=== PATIENT | female | born 1990 | race African-American/Black ===

== ENCOUNTER → 2016-10-08 | Outpatient (CLI) | payer OTHER ==
--- NOTE | 2016-10-08 17:06 | US ---
EXAMINATION TYPE: US OB <=14 wks transvag DATE OF EXAM: 10/08/2016 COMPARISON: NONE CLINICAL HISTORY: N91.2 AMENORRHEA. Early OB, no bleeding or cramping EXAM PERFORMED: OBTA and OBTV EXAM MEASUREMENTS: GESTATIONAL AGE / DATING Physician Established: Not established Dates by LMP: unknown Dates by First Scan: SOLE BUFFER Dates by Current Scan for: N/A MATERNAL ANATOMY Uterus: 11.6 x 7.9 x 6.4cm Right Ovary: 2.6 x 2.3 x 2.8cm Left Ovary: 4.0 x 2.7 x 2.6cm Post CDS / Adnexa: wnl Presence of free fluid: no Presence of corpus luteal cyst: not seen Presence of subchorionic bleed: no GESTATION / SURVEY Heterogeneous area seen midline fundus with mixed components. Vascularity noted. No discernable gesta tion sac seen. Date of LMP: unknown Beta HcG (if available): not available IMPRESSION: There is irregular fluid collection in the uterine fundus that could be an early gestational sac. No yolk sac is seen. This measures 1.6 cm in diameter. This could relate to a blighted ovum. No evidence of ectopic .
== END | disposition home or self-care (01) ==
LOC: RADUSWWP 16:15
PROVIDERS: ATTEND Obstetrics & Gynecology
DX: O02.0 Blighted ovum and nonhydatidiform mole (principal); N85.8 Other specified noninflammatory disorders of uterus; Z3A.14 14 weeks gestation of pregnancy
CPT/HCPCS: 76801; 76817

== ENCOUNTER 2016-10-19 09:16 | Observation (INO) | payer OTHER ==
--- NOTE | 2016-10-19 10:57 | ED ---
General Adult HPI - General Chief complaint: Vaginal Bleeding Stated complaint: Vaginal Bleeding Time Seen by Provider: 10/19/16 10:34 Source: patient, RN notes reviewed Mode of arrival: EMS Limitations: no limitations - History of Present Illness Initial comments: 25-year-old female presents to the emergency department with a chief complaint of vaginal bleeding. Patient was seen at a previous ER prior to being transferred here for this vaginal bleeding. A pelvic exam that showed an increased amount of bleeding. She was recently diagnosed with a miscarriage back in October 02. She states she's had minor bleeding since the miscarriage but then she started to have heavy bleeding the last 2 days. Patient states she goes through 2-3 pads an hour. Patient states she has had some lightheadedness but this time she does feel okay. Patient states that she is chronically suffer from anemia. 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 Patient states that she is a . Patient states that she hasn't had any fever chills with this. Patient denies any abdominal pain. Patient was concerned due to the bleeding and she was transferred here because they do not have any OB /RESIDENTIAL DOOR UNIT INSTALLER coverage for additional care. Patient denies any recent fever, chills, shortness of breath, chest pain, back pain, abdominal pain, nausea vomiting, numbness or tingling, dysuria or hematuria, constipation or diarrhea, headaches or visual changes, or any other current symptoms. - Related Data Home Medications Medication Instructions Recorded Confirmed Ferrous Sulfate [Feosol] 325 mg PO DAILY 10/19/16 10/19/16 Tjk-Qdha-Caogn Acid 1 cap PO DAILY 10/19/16 10/19/16 [-U Capsule (formulary)] Allergies Allergy/AdvReac Type Severity Reaction Status Date / Time No Known Allergies Allergy Verified 10/19/16 10:08 Review of Systems ROS Statement: Those systems with pertinent positive or pertinent negative responses have been documented in the HPI. ROS Other: All systems not noted in ROS Statement are negative. Past Medical History Additional Past Medical History / Comment(s): anemia History of Any Multi-Drug Resistant Organisms: None Reported Past Surgical History: No Surgical Hx Reported Past Psychological History: No Psychological Hx Reported Smoking Status: Never smoker Past Alcohol Use History: None Reported Past Drug Use History: None Reported General Exam - General Exam Comments Initial Comments: General: The patient is awake and alert, in no distress, and does not appear acutely ill. Eye: Pupils are equal, round and reactive to light, extra-ocular movements are intact; there is normal conjunctiva bilaterally. No signs of icterus. Ears, nose, mouth and throat: There are moist mucous membranes. Neck: The neck is supple, there is no tenderness. Cardiovascular: There is a regular rate and rhythm. No murmur, rub or gallop is appreciated. Respiratory: Lungs are clear to auscultation, respirations are non-labored, breath sounds are equal. No wheezes, stridor, rales, or rhonchi. Gastrointestinal: Soft, non-distended, non-tender abdomen without masses or organomegaly noted. There is no rebound or guarding present. No CVA tenderness. Bowel sounds are unremarkable. Back: There is no tenderness to palpation in the midline. There is no obvious deformity. No rashes noted. Musculoskeletal: Normal ROM, no tenderness, There is no pedal edema. There is no calf tenderness or swelling. Sensation intact. Pulses equal bilaterally 2+. Neurological: CN II-XII intact, There are no obvious motor or sensory deficits. Coordination appears grossly intact. Speech is normal. Skin: Skin is warm and dry and no rashes or lesions are noted. Psychiatric: Cooperative, appropriate mood & affect, normal judgment. Limitations: no limitations External exam: Present: normal external exam Speculum exam: Present: vaginal bleeding, other (clot in cervical os) Course Vital Signs 10/19/16 10/19/16 10/19/16 09:19 12:24 13:40 Temperature 97.8 F 98.3 F Pulse Rate 95 99 94 Respiratory 18 18 18 Rate Blood Pressure 122/54 114/68 122/66 O2 Sat by Pulse 100 100 100 Oximetry Medical Decision Making - Medical Decision Making 25-year-old female presents emergency department chief complaint of vaginal bleeding. At this time patient's previous laboratory is reviewed that do show a stable hemoglobin. We will do an ultrasound of the area we will repeat pelvic exam as well as an hCG level. This time patient's lab work and outpatient labs from previous hospital as well as ultrasound of fluids and reviewed. This time it does appear the patient has most likely retained products of conception. We will admit the patient. Case was discussed with Dr. Gil by and there hoped to do a D&C. Patient will be Nothing by mouth we'll continue hydration. - Lab Data Result diagrams: 10/19/16 11:00 Lab Results 10/19/16 10/19/16 10/19/16 Range/Units 11:00 11:00 12:23 WBC 8.0 (3.8-10.6) k/uL RBC 3.69 L (3.80-5.40) m/uL Hgb 9.1 L (11.4-16.0) gm/dL Hct 29.8 L (34.0-46.0) % MCV 80.9 (80.0-100.0) fL MCH 24.6 L (25.0-35.0) pg MCHC 30.4 L (31.0-37.0) g/dL RDW 15.0 (11.5-15.5) % Plt Count 305 (150-450) k/uL Neutrophils % 86 % Lymphocytes % 10 % Monocytes % 2 % Eosinophils % 2 % Basophils % 0 % Neutrophils # 6.8 (1.3-7.7) k/uL Lymphocytes # 0.8 L (1.0-4.8) k/uL Monocytes # 0.1 (0-1.0) k/uL Eosinophils # 0.2 (0-0.7) k/uL Basophils # 0.0 (0-0.2) k/uL Hypochromasia Slight HCG, Quant 2107.2 mIU/mL Blood Type A Positive Blood Type Confirm Blood Type Recheck CABO Indicated Antibody Screen NEGATIVE Spec Expiration Date 10/22/2016 - 229910/19/16 Range/Units 12:35 WBC (3.8-10.6) k/uL RBC (3.80-5.40) m/uL Hgb (11.4-16.0) gm/dL Hct (34.0-46.0) % MCV (80.0-100.0) fL MCH (25.0-35.0) pg MCHC (31.0-37.0) g/dL RDW (11.5-15.5) % Plt Count (150-450) k/uL Neutrophils % % Lymphocytes % % Monocytes % % Eosinophils % % Basophils % % Neutrophils # (1.3-7.7) k/uL Lymphocytes # (1.0-4.8) k/uL Monocytes # (0-1.0) k/uL Eosinophils # (0-0.7) k/uL Basophils # (0-0.2) k/uL Hypochromasia HCG, Quant mIU/mL Blood Type Blood Type Confirm A Positive Blood Type Recheck Antibody Screen Spec Expiration Date - Radiology Data Radiology results: report reviewed, image reviewed Disposition Clinical Impression: Retained products of conception Disposition: ADMITTED IP TO THIS [facility] Condition: Stable Referrals: Jordin Lester MD [Primary Care Provider] - 1-2 days Time of Disposition: 13:44 Decision Date: 10/19/16 Decision Time: 13:44
[2016-10-19 11:23] LABS: Basophils % (A) 0 %; CHCM 31.1; Eosinophils # (A) 0.2 k/uL (0-0.7); Eosinophils % (A) 2 %; HCT 29.8 % (34.0-46.0); HDW 2.56; HGB 9.1 gm/dL (11.4-16.0); Hypochromasia Slight; Luc # (Auto) 0.04; Luc % (Auto) 1; Lymphocytes # (A) 0.8 k/uL (1.0-4.8); Lymphocytes % (A) 10 %; MCH 24.6 pg (25.0-35.0); MCHC 30.4 g/dL (31.0-37.0); MCV 80.9 fL (80.0-100.0); Mean Platelet Volume 7.3; Monocytes # (A) 0.1 k/uL (0-1.0); Monocytes % (A) 2 %; Neutrophils # (A) 6.8 k/uL (1.3-7.7); Neutrophils % (A) 86 %; RBC 3.69 m/uL (3.80-5.40); WBC (Perox) 8.21
--- NOTE | 2016-10-19 13:00 | US ---
EXAMINATION TYPE: US transvaginal DATE OF EXAM: 10/19/2016 COMPARISON: US 10/08/16 CLINICAL HISTORY: Pain. bleeding, cramping Patient states she had a miscarriage in September 2016 TECHNIQUE: Transvaginal (TV) Date of LMP: 08/20/16 EXAM MEASUREMENTS: Uterus: 9.7 x 6.2 x 5.9 cm Endometrial Stripe: 2.1 cm Right Ovary: 2.9 x 2.2 x 2.0 cm Left Ovary: 4.5 x 2.7 x 2.2 cm 1. Uterus: fluid seen within uterus. ? anterior, fundal isoechoic focus measures 2.5 x 3.1 x 2.0 cm 2. Endometrium: Thickened 3. Right Ovary: wnl 4. Left Ovary: wnl Spectral, color and waveform doppler imaging shows good arterial and venous flow within the ovaries ; there is no evidence for ovarian torsion. 5. Bilateral Adnexa: wnl 6. Posterior cul-de-sac: very tiny amount of free fluid. IMPRESSION: Correlate for possible retained products of conception. Fibroid suspected.
[2016-10-19] MEDS ORDERED: NALOXONE 0.4 MG/ML 1 ML VIAL IV PRN (13:44)
[2016-10-19] MEDS ORDERED: ONDANSETRON 4 MG/2 ML VIAL IVP PRN (13:44)
[2016-10-19] MEDS ORDERED: SODIUM CHLORIDE 0.9% 1,000 ML IV SCH (13:45)
[2016-10-19 15:38] VITALS: BMI 51.1
--- NOTE | 2016-10-19 16:59 | P.HPOB ---
History of Present Illness H&P Date: 10/19/16 Chief Complaint: incomplete Patient is a 25-year-old female who has been seeing Dr. Joiner previously for her . She was known to have an non-viable based on ultrasound approximately 3 or 4 weeks ago. She had a repeat ultrasound again on approximately October 08 showing a nonviable again. She was scheduled to see Dr. Joiner on the for a follow-up visit. She has not had any follow-up visits or contact with his office since ultrasound was done. She arrived today following the last 2 days having significant increase in her bleeding. She is passing clots but is to this point she knows not passed any products. An ultrasound done in the emergency room at [facility] today reveals products of conception that appeared to be retained and will plan to move forward with a suction D&C. Risks/benefits/alternatives to this procedure were discussed with the patient in detail and all questions are answered for her prior to proceeding to the operating room. She is aware of anesthetic risks, risk of bleeding, risks of not getting all the products out, as well as perforation with bowel injury or even . Past medical history is unremarkable other than anemia. Past surgical history none. ALLERGIES none. Social history unremarkable. Family history of diabetes and hypertension. On physical exam vital signs are stable and afebrile. Lungs clear, heart regular, abdomen is soft. Will defer pelvic exam to the operating room. Assessment incomplete AB. Plan suction D&C Past Medical History Past Medical History: No Reported History Additional Past Medical History / Comment(s): anemia History of Any Multi-Drug Resistant Organisms: None Reported Past Surgical History: No Surgical Hx Reported Past Psychological History: No Psychological Hx Reported Smoking Status: Never smoker Past Alcohol Use History: None Reported Past Drug Use History: None Reported - Past Family History Father History Unknown: Yes Medications and Allergies Home Medications Medication Instructions Recorded Confirmed Type Ferrous Sulfate [Feosol] 325 mg PO DAILY 10/19/16 10/19/16 History Qrp-Dfla-Gvjzk Acid 1 cap PO DAILY 10/19/16 10/19/16 History [-U Capsule (formulary)] Allergies Allergy/AdvReac Type Severity Reaction Status Date / Time No Known Allergies Allergy Verified 10/19/16 10:08 Exam Osteopathic Statement: *. No significant issues noted on an osteopathic structural exam other than those noted in the History and Physical/Consult. - Vital Signs Vital signs: Vital Signs Temp Pulse Pulse Resp BP BP Pulse Ox 10/19/16 15:29 96.4 F L 93 18 122/56 100 10/19/16 13:40 98.3 F 94 18 122/66 100 10/19/16 12:24 99 18 114/68 100 10/19/16 09:19 97.8 F 95 18 122/54 100 Intake and Output 10/19/16 10/19/16 10/19/16 06:59 14:59 22:59 Other: Voiding Method Toilet Weight 135.171 kg 135.171 kg Patient Weight 10/20/16 06:59 Weight 135.171 kg Results Result Diagrams: 10/19/16 11:00 Abnormal Lab Results - Last 24 Hours (Table) 10/19/16 Range/Units 11:00 RBC 3.69 L (3.80-5.40) m/uL Hgb 9.1 L (11.4-16.0) gm/dL Hct 29.8 L (34.0-46.0) % MCH 24.6 L (25.0-35.0) pg MCHC 30.4 L (31.0-37.0) g/dL Lymphocytes # 0.8 L (1.0-4.8) k/uL
[2016-10-19] MEDS ORDERED: SUCCINYLCHOLINE CHLORIDE VIAL 200 MG/10 ML VIAL IV ONE (17:43)
[2016-10-19] MEDS ORDERED: IV FLUID CONTINUATION 900 ML IV ONE (17:43)
[2016-10-19] MEDS ORDERED: KETOROLAC 30 MG/ML 1 ML VIAL ONE (17:43)
[2016-10-19] MEDS ORDERED: fentaNYL (PF) 50 MCG/ML 2 ML AMP ONE (17:43)
[2016-10-19] MEDS ORDERED: MIDAZOLAM 2 MG/2 ML VIAL ONE (17:43)
[2016-10-19] MEDS ORDERED: PROPOFOL 10 MG/ML 20 ML VIAL IV ONE (17:43)
[2016-10-19] MEDS ORDERED: LIDOCAINE 1% INJ 10MG/ML (20 ML MDV) ONE (17:43)
--- NOTE | 2016-10-19 18:07 | P.OP ---
Date of Procedure: 10/19/16 Preoperative Diagnosis: Incomplete AB Postoperative Diagnosis: Same Procedure(s) Performed: Suction D&C Implants: Anesthesia: NEYMARA Surgeon: Mina Bach Estimated Blood Loss (ml): 10 Pathology: other (Uterine curettings) Condition: stable Disposition: same day Indications for Procedure: Operative Findings: Await pathology Description of Procedure: Patient was taken to the operating suite where a general anesthetic was found be adequate. She was prepped and draped in the normal sterile fashion and placed in dorsal lithotomy position. Initially a weighted speculum was inserted into the vagina in the anterior lip cervix identified and grasped with an Allis clamp. Cervix then dilated and uterus was sounded to 9 cm. Using an 8 curved tip catheter it was inserted and suction was applied. 3 passes were done with the suction. At the conclusion of this gentle sharp curettings were done to verify removal of all tissue and one more pass with the suction tip catheter was done. Uterus was firm and no bleeding is noted at the conclusion of the case. Sponge, lap, needle counts were all correct 2. Patient was then taken to the recovery room in stable and satisfactory condition Plan - Discharge Summary New Discharge Prescriptions: New Ibuprofen [Motrin] 600 mg PO Q6HR PRN #30 tab PRN Reason: Pain No Action Unv-Ladw-Qmvhy Acid [-U Capsule (formulary)] 1 cap PO DAILY Ferrous Sulfate [Feosol] 325 mg PO DAILY Discharge Medication List Ferrous Sulfate [Feosol] 325 mg PO DAILY 10/19/16 [History] Ibuprofen [Motrin] 600 mg PO Q6HR PRN #30 tab 10/19/16 [Rx] Ogp-Qpgn-Jwmxn Acid [-U Capsule (formulary)] 1 cap PO DAILY [History] Follow up Appointment(s)/Referral(s): Jordin Lester MD [Primary Care Provider] - 1-2 days Activity/Diet/Wound Care/Special Instructions: No heavy lifting, limit stairs and driving, and pelvic rest. If any high temperatures, heavy bleeding, or severe pain call my office or her primary diagnostic medical sonographer's office
[2016-10-19 18:34] VITALS: RESP 16
[2016-10-19 20:52] VITALS: TEMP 97.6
[2016-10-19 21:02] VITALS: BP 117/60; PULSE 100
== END 2016-10-19 20:35 | disposition home or self-care (01) ==
LOC: EC 09:16 → INTOOBSV 14:03 → 6PED 14:03 → 4FBP 15:05
PROVIDERS: ADMIT Obstetrics & Gynecology; ATTEND Obstetrics & Gynecology
DX: O03.4 Incomplete spontaneous abortion without complication (principal); D64.9 Anemia, unspecified; Z79.899 Other long term (current) drug therapy
CPT/HCPCS: 59812; 99285; 36415; 86900; 86901; 88305; 85025; 86850; 84702; 76830; G0378; J2250; J0330; J2001; J3010; J1885; J2704

== ENCOUNTER → 2017-10-28 | Outpatient (CLI) | payer OTHER ==
[2017-10-28 10:48] LABS: Anisocytosis Slight; Basophils % (A) 0 %; Eosinophils # (A) 0.1 k/uL (0-0.7); Eosinophils % (A) 2 %; HCT 34.1 % (34.0-46.0); HGB 9.9 gm/dL (11.4-16.0); Hypochromasia Marked; Lymphocytes # (A) 1.4 k/uL (1.0-4.8); Lymphocytes % (A) 22 %; MCH 22.8 pg (25.0-35.0); MCHC 29.2 g/dL (31.0-37.0); MCV 78.1 fL (80.0-100.0); Mean Platelet Volume 6.5; Microcytosis Slight; Monocytes # (A) 0.2 k/uL (0-1.0); Monocytes % (A) 3 %; Neutrophils # (A) 4.6 k/uL (1.3-7.7); Neutrophils % (A) 71 %; Platelet Count 292 k/uL (150-450); RBC 4.37 m/uL (3.80-5.40); RDW 16.1 % (11.5-15.5); WBC 6.4 k/uL (3.8-10.6)
[2017-10-28 11:13] LABS: T4, Free (Free Thyroxine) 0.68 ng/dL (0.78-2.19)
[2017-10-28 18:27] LABS: HIV 1 AB Non-Reactive (Non-Reactive); HIV AB P24 Non-Reactive (Non-Reactive); HIV P24 AG Non-Reactive (Non-Reactive)
[2017-10-28 19:12] LABS: Hemoglobin A1C 5.6 % (4.0-6.0)
== END | disposition home or self-care (01) ==
LOC: LABWHC1 10:21
PROVIDERS: ATTEND Obstetrics & Gynecology
DX: O99.212 Obesity complicating pregnancy, second trimester (principal); Z3A.16 16 weeks gestation of pregnancy
CPT/HCPCS: 36415; 82950; 83036; 84439; 84443; 85025; 86762; 86780; 86850; 86900; 86901; 87340; 87390

== ENCOUNTER 2017-12-31 17:57 | Emergency (ER) | payer OTHER ==
[2017-12-31 18:43] VITALS: TEMP 98.3
[2017-12-31] MEDS ORDERED: diphenhydrAMINE 50 MG/ML 1 ML VIAL IVP STA (20:31)
[2017-12-31] MEDS ORDERED: SODIUM CHLORIDE 0.9% 2,000 ML IV ONE (20:31)
[2017-12-31] MEDS ORDERED: METOCLOPRAMIDE 5 MG/ML 2 ML VIAL IVP STA (20:31)
[2017-12-31 21:02] LABS: Appearance,Urine Cloudy (Clear); Bacteria,Urine Rare /hpf; Bilirubin,Urine Negative (Negative); Blood,Urine Negative (Negative); Calcium Oxalate Crystals,Urine Occasional /hpf; Color,Urine Yellow; Glucose,Urine (UA) Negative (Negative); Ketones,Urine Trace (Negative); Leukocyte Esterase,Urine Negative (Negative); Mucus,Urine Occasional /hpf; Nitrite,Urine Negative (Negative); PH, Urine 6.5 (5.0-8.0); Protein,Urine Trace (Negative); RBC,Urine 9 /hpf (0-5); Specific Gravity,Urine 1.021 (1.001-1.035); Squamous Epithelial Cell,Urine 3 /hpf (0-4); Urobilinogen,Urine <2.0 mg/dL (<2.0); WBC,Urine 2 /hpf (0-5)
[2017-12-31 21:45] LABS: Anisocytosis Slight; Basophils % (A) 0 %; Eosinophils # (A) 0.2 k/uL (0-0.7); Eosinophils % (A) 3 %; HCT 34.7 % (34.0-46.0); HGB 10.7 gm/dL (11.4-16.0); Hypochromasia Moderate; Lymphocytes % (A) 24 %; MCH 24.1 pg (25.0-35.0); MCHC 30.7 g/dL (31.0-37.0); MCV 78.4 fL (80.0-100.0); Mean Platelet Volume 6.3; Microcytosis Slight; Monocytes # (A) 0.3 k/uL (0-1.0); Monocytes % (A) 3 %; Neutrophils # (A) 5.7 k/uL (1.3-7.7); Neutrophils % (A) 68 %; Platelet Count 300 k/uL (150-450); RBC 4.43 m/uL (3.80-5.40); WBC 8.3 k/uL (3.8-10.6)
[2017-12-31 22:01] LABS: Anion Gap 11 mmol/L; Blood Urea Nitrogen 5 mg/dL (7-17); Carbon Dioxide 21 mmol/L (22-30); Chloride 105 mmol/L (98-107); Glucose 84 mg/dL (74-99); Potassium 4.2 mmol/L (3.5-5.1); Sodium 137 mmol/L (137-145)
[2018-01-01 00:32] VITALS: BP 145/72; PULSE 105; RESP 14
--- NOTE | 2018-01-01 00:34 | ED ---
Dizziness HPI - General Chief Complaint: Dizziness Stated Complaint: Dizziness/Dry Mouth/ 25 Weeks Preg Time Seen by Provider: 12/31/17 20:22 Source: patient Mode of arrival: ambulatory Limitations: no limitations - History of Present Illness Initial Comments: Patient is a 27-year-old female, , who presents with chief complaint of dizziness for 5 days. The patient states that she feels as if she is lightheaded and sees dots. 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 Patient states that she also has some nausea which has been common for her during . She cannot identify an inciting incident though she does admit to having a cold prior to onset. There are no aggravating or alleviating factors. Timing is been constant. - Related Data Home Medications Medication Instructions Recorded Confirmed Ferrous Sulfate [Feosol] 650 mg PO DAILY 10/19/16 12/31/17 Fgm-Fpfh-Wshkc Acid 1 cap PO DAILY 10/19/16 12/31/17 [-U Capsule (formulary)] Cholecalciferol [Vitamin D3] 2,000 unit PO DAILY 12/31/17 12/31/17 Previous Rx's Medication Instructions Recorded Metoclopramide HCl [Reglan] 5 mg PO Q8H PRN #20 tablet 01/01/18 Nitrofurantoin Monohyd/M-Cryst 100 mg PO Q12HR #10 cap 01/01/18 [Macrobid] Allergies Allergy/AdvReac Type Severity Reaction Status Date / Time No Known Allergies Allergy Verified 12/31/17 19:59 Review of Systems ROS Statement: Those systems with pertinent positive or pertinent negative responses have been documented in the HPI. ROS Other: All systems not noted in ROS Statement are negative. Gastrointestinal: Reports: nausea Past Medical History Past Medical History: No Reported History Additional Past Medical History / Comment(s): anemia History of Any Multi-Drug Resistant Organisms: None Reported Past Surgical History: No Surgical Hx Reported Past Psychological History: No Psychological Hx Reported Smoking Status: Never smoker Past Alcohol Use History: None Reported Past Drug Use History: None Reported - Past Family History Father History Unknown: Yes General Exam Limitations: no limitations General appearance: alert, in no apparent distress Head exam: Present: atraumatic, normocephalic Eye exam: Present: normal appearance, PERRL ENT exam: Present: normal exam Neck exam: Present: normal inspection Respiratory exam: Present: normal lung sounds bilaterally. Absent: respiratory distress, wheezes Cardiovascular Exam: Present: regular rate, normal rhythm GI/Abdominal exam: Present: soft. Absent: distended, tenderness Rectal exam: Present: deferred Extremities exam: Present: normal inspection Back exam: Present: normal inspection Neurological exam: Present: alert, oriented X3 Psychiatric exam: Present: normal affect, normal mood Skin exam: Present: warm, dry, intact Course Vital Signs 12/31/17 12/31/17 12/31/17 18:41 20:35 21:00 Temperature 98.3 F Pulse Rate 54 L Respiratory 18 Rate Blood Pressure 130/74 148/80 126/80 O2 Sat by Pulse 97 100 Oximetry 12/31/17 12/31/17 12/31/17 22:00 22:30 23:00 Temperature Pulse Rate Respiratory Rate Blood Pressure 155/87 139/79 151/83 O2 Sat by Pulse 100 100 100 Oximetry Medical Decision Making - Medical Decision Making Patient presents with chief complaint of dizziness. On initial evaluation, vital signs are stable, patient is in no acute distress. Patient evaluated with basic labs, urinalysis. Patient was given 2 L of IV fluid, Reglan and Benadryl. Laboratory evaluation is unremarkable. Hemoglobin is 10.7 which is up from previous values as patient is chronically anemic. Urinalysis does not show evidence of infection however there are bacteria identified. On reevaluation, patient states she feels improved. She is sleepy secondary to the Benadryl. At this time she is stable for discharge and agreeable with the care plan. She was written a prescription for Macrobid, and Reglan. She was instructed to stay very well-hydrated and to follow up with her primary care doctor and [employer] in 1-2 days. Return to the emergency department if symptoms worsen or change. - Lab Data Result diagrams: 12/31/17 21:30 12/31/17 21:30 Lab Results 12/31/17 12/31/17 12/31/17 Range/Units 19:57 21:30 21:30 WBC 8.3 (3.8-10.6) k/uL RBC 4.43 (3.80-5.40) m/uL Hgb 10.7 L (11.4-16.0) gm/dL Hct 34.7 (34.0-46.0) % MCV 78.4 L (80.0-100.0) fL MCH 24.1 L (25.0-35.0) pg MCHC 30.7 L (31.0-37.0) g/dL RDW 16.0 H (11.5-15.5) % Plt Count 300 (150-450) k/uL Neutrophils % 68 % Lymphocytes % 24 % Monocytes % 3 % Eosinophils % 3 % Basophils % 0 % Neutrophils # 5.7 (1.3-7.7) k/uL Lymphocytes # 2.0 (1.0-4.8) k/uL Monocytes # 0.3 (0-1.0) k/uL Eosinophils # 0.2 (0-0.7) k/uL Basophils # 0.0 (0-0.2) k/uL Hypochromasia Moderate Anisocytosis Slight Microcytosis Slight Sodium 137 (137-145) mmol/L Potassium 4.2 (3.5-5.1) mmol/L Chloride 105 (98-107) mmol/L Carbon Dioxide 21 L (22-30) mmol/L Anion Gap 11 mmol/L BUN 5 L (7-17) mg/dL Creatinine 0.44 L (0.52-1.04) mg/dL Est GFR (CKD-EPI)AfAm >90 (>60 ml/min/1.73 sqM) Est GFR (CKD-EPI)NonAf >90 (>60 ml/min/1.73 sqM) Glucose 84 (74-99) mg/dL Calcium 10.0 (8.4-10.2) mg/dL Urine Color Yellow Urine Appearance Cloudy H (Clear) Urine pH 6.5 (5.0-8.0) Ur Specific [place] 1.021 (1.001-1.035) Urine Protein Trace H (Negative) Urine Glucose (UA) Negative (Negative) Urine Ketones Trace H (Negative) Urine Blood Negative (Negative) Urine Nitrite Negative (Negative) Urine Bilirubin Negative (Negative) Urine Urobilinogen <2.0 (<2.0) mg/dL Ur Leukocyte Esterase Negative (Negative) Urine RBC 9 H (0-5) /hpf Urine WBC 2 (0-5) /hpf Ur Squamous Epith Cells 3 (0-4) /hpf Calcium Oxalate Crystal Occasional H (None) /hpf Urine Bacteria Rare H (None) /hpf Urine Mucus Occasional H (None) /hpf Disposition Clinical Impression: Dehydration, Antepartum asymptomatic bacteriuria Disposition: HOME SELF-CARE Condition: Good Instructions: Dizziness (ED) Is patient prescribed a controlled substance at d/c from ED?: No Referrals: Jordin Lester MD [Primary Care Provider] - 1-2 days
== END 2018-01-01 00:45 | disposition home or self-care (01) ==
LOC: EC 17:57
DX: O99.282 Endocrine, nutritional and metabolic diseases complicating pregnancy, second trimester (principal); E86.0 Dehydration; O98.812 Other maternal infectious and parasitic diseases complicating pregnancy, second trimester; R82.71 Bacteriuria; O99.112 Other diseases of the blood and blood-forming organs and certain disorders involving the immune mechanism complicating pregnancy, second trimester; D64.9 Anemia, unspecified; O99.89 Other specified diseases and conditions complicating pregnancy, childbirth and the puerperium; R11.0 Nausea; Z79.899 Other long term (current) drug therapy; Z3A.25 25 weeks gestation of pregnancy
CPT/HCPCS: 36415; 80048; 85025; 81001; 99284; 96374; 96375; 96361 ×2; J1200; J2765

== ENCOUNTER 2018-04-04 06:00 | Inpatient (IN) | payer OTHER ==
[2018-04-04] MEDS ORDERED: PENICILLIN G POTASSIUM 5,000,000 UNIT in DEXTROSE 5% IN WATER 100 ML IVPB STA ×2 (06:35)
[2018-04-04] MEDS ORDERED: OXYTOCIN 10 UNIT/ML 1 ML VIAL IM PRN (06:35)
[2018-04-04] MEDS ORDERED: METHYLERGONOVINE 0.2 MG/ML 1 ML AMP IM PRN (06:35)
[2018-04-04] MEDS ORDERED: CARBOPROST TROMETHAMINE 250 MCG/ML 1 ML AMP IM PRN (06:35)
[2018-04-04] MEDS ORDERED: LIDOCAINE 0.5% (PF) 5 MG/ML (50 ML SDV) SQ PRN (06:35)
[2018-04-04] MEDS ORDERED: TERBUTALINE 1 MG/ML VIAL SQ PRN (06:35)
[2018-04-04] MEDS ORDERED: OXYTOCIN 20 UNITS/1000 ML NS 1,000 ML IV SCH ×2 (06:45→22:30)
[2018-04-04 06:46] VITALS: BMI 53.5
[2018-04-04 06:47] LABS: Anisocytosis Slight; Basophils % (A) 0 %; Eosinophils # (A) 0.2 k/uL (0-0.7); Eosinophils % (A) 3 %; HCT 35.7 % (34.0-46.0); HGB 11.2 gm/dL (11.4-16.0); Hypochromasia Slight; Lymphocytes # (A) 1.2 k/uL (1.0-4.8); Lymphocytes % (A) 15 %; MCH 24.4 pg (25.0-35.0); MCHC 31.5 g/dL (31.0-37.0); MCV 77.4 fL (80.0-100.0); Mean Platelet Volume 7.1; Microcytosis Slight; Monocytes # (A) 0.3 k/uL (0-1.0); Monocytes % (A) 4 %; Neutrophils # (A) 5.9 k/uL (1.3-7.7); Neutrophils % (A) 76 %; Platelet Count 296 k/uL (150-450); RBC 4.61 m/uL (3.80-5.40); RDW 16.3 % (11.5-15.5); WBC 7.8 k/uL (3.8-10.6)
[2018-04-04] MEDS: LACTATED RINGERS 1,000 ML IV SCH ×2 (06:57→14:50)
[2018-04-04] MEDS ORDERED: BUTORPHANOL 1 MG/ML 1 ML VIAL IV PRN (08:58)
--- NOTE | 2018-04-04 09:04 | P.HPOB ---
History of Present Illness H&P Date: 04/04/18 Chief Complaint: 39-0/7 weeks, elective induction The patient is a 27-year-old 4 para 2011 admitted at 39-0/7 weeks as established by an 8 week ultrasound. She is admitted for elective induction secondary to suspected macrosomia with fetus growing at greater than 90th percentile on multiple sonographic evaluations in the third trimester. Her has otherwise been uncomplicated though she is group B strep positive. On admission, all signs reassuring. Obstetrical history: 4 para 2011 with 2 term vaginal deliveries and one early miscarriage requiring D&C. Current statistics are listed in history of present illness. EDC of 04/11/2018 was established by an 8 week ultrasound. Laboratory workup demonstrates a blood type of A+ with a negative antibody screen. Rubella status is immune. Remainder of the laboratory workup was within normal limits. Early Glucola as well as second trimester Glucola were within normal limits. Group B strep status is positive. Gynecologic history: Unremarkable with no reported history of any infections to include STDs. Review of Systems Review of systems is confined to history of present illness. Past Medical History Past Medical History: No Reported History Additional Past Medical History / Comment(s): anemia History of Any Multi-Drug Resistant Organisms: None Reported Past Surgical History: No Surgical Hx Reported Additional Past Surgical History / Comment(s): D&C 2018 Past Anesthesia/Blood Transfusion Reactions: No Reported Reaction Past Psychological History: No Psychological Hx Reported Smoking Status: Never smoker Past Alcohol Use History: None Reported Past Drug Use History: None Reported - Past Family History Father History Unknown: Yes Medications and Allergies Home Medications Medication Instructions Recorded Confirmed Type Ferrous Sulfate [Feosol] 650 mg PO DAILY 10/19/16 04/04/18 History Azy-Ofez-Ecerd Acid 1 cap PO DAILY 10/19/16 04/04/18 History [-U Capsule (formulary)] Cholecalciferol [Vitamin D3] 2,000 unit PO DAILY 12/31/17 04/04/18 History Allergies Allergy/AdvReac Type Severity Reaction Status Date / Time No Known Allergies Allergy Verified 04/04/18 06:33 Exam Vital Signs Temp Pulse Resp BP Pulse Ox 04/04/18 06:40 97 F L 107 H 15 172/94 98 Intake and Output 04/03/18 04/04/18 04/04/18 22:59 06:59 14:59 Other: Weight 141.521 kg In general, this is a well-developed, morbidly obese female in no acute distress. Her heart has a regular rhythm and rate without murmur. Her lungs are clear to auscultation bilaterally in all reddy. Her abdomen is obese, nondistended, gravid, has normal active bowel sounds, soft, nontender, and without any palpable masses aside from uterine fundus. Her extremities are without any cyanosis, clubbing, or edema and are nontender to palpation bilaterally. Digital cervical examination on straights her cervix to be approximately 2+ centimeters dilated, 50% effaced, with the vertex in presentation at -2 station. Artificial rupture of membranes is carried out demonstrating clear fluid. Results Result Diagrams: 04/04/18 06:39 Abnormal Lab Results - Last 24 Hours (Table) 04/04/18 Range/Units 06:39 Hgb 11.2 L (11.4-16.0) gm/dL MCV 77.4 L (80.0-100.0) fL MCH 24.4 L (25.0-35.0) pg RDW 16.3 H (11.5-15.5) % Assessment and Plan (1) Term Current Visit: Yes Status: Acute Code(s): Z34.80 - ENCOUNTER FOR SUPRVSN OF NORMAL , UNSP TRIMESTER SNOMED Code(s): 74627174 (2) macrosomia Current Visit: Yes Status: Acute Code(s): O36.60X0 - MATERNAL CARE FOR EXCESS GROWTH, UNSP TRIMESTER, UNSP SNOMED Code(s): 22670625 Plan: The patient is admitted for elective induction of labor understanding the risks and complications which include a slightly increased risk for delivery. Pitocin augmentation has been started and artificial rupture of membranes carried out. She will have close maternal and surveillance and expectant management will be practiced. She is a good candidate for either IV or epidural analgesia, whichever she may choose. Antibiotic prophylaxis has been initiated for group B strep prophylaxis.
[2018-04-04] MEDS: PENICILLIN G POTASSIUM 2,500,000 UNIT in DEXTROSE 5% IN WATER 100 ML IVPB SCH ×6 (11:20→19:35)
[2018-04-04] MEDS ORDERED: ROPIVACAINE 100 MG, fentaNYL (PF) 200 MCG in SODIUM CHLORIDE 0.9% 76 ML EPIDURAL ONE (15:50)
[2018-04-04] MEDS ORDERED: CITRIC ACID-SODIUM CITRATE 15 ML CUP PO ONE (20:50)
[2018-04-04] MEDS ORDERED: ONDANSETRON 4 MG/2 ML VIAL ONE (21:12)
[2018-04-04] MEDS ORDERED: MORPHINE SULFATE (PF) 0.3 MG/0.3 ML SYR ONE (21:12)
[2018-04-04] MEDS ORDERED: ePHEDrine SULFATE/0.9% NACL/PF 50 MG/5 ML SYRINGE IV ONE (21:12)
[2018-04-04] MEDS ORDERED: KETOROLAC 30 MG/ML 1 ML VIAL ONE (21:12)
[2018-04-04] MEDS ORDERED: diphenhydrAMINE 50 MG/ML 1 ML VIAL IVP PRN ×2 (22:20)
[2018-04-04] MEDS ORDERED: ZOLPIDEM 5 MG TAB PO PRN (22:20)
[2018-04-04] MEDS ORDERED: NALOXONE 0.4 MG/ML 1 ML VIAL IV PRN (22:20)
[2018-04-04] MEDS ORDERED: HYDROcodone/APAP 7.5-325MG 1 EACH TAB PO PRN (22:20)
[2018-04-04] MEDS ORDERED: METOCLOPRAMIDE 5 MG/ML 2 ML VIAL IVP PRN (22:20)
[2018-04-04] MEDS ORDERED: HYDROcodone/APAP 5-325MG 1 EACH TAB PO PRN (22:20)
[2018-04-04] MEDS ORDERED: ONDANSETRON 4 MG/2 ML VIAL IVP PRN (22:20)
[2018-04-04] MEDS ORDERED: diphenhydrAMINE 50 MG CAP PO PRN (22:20)
[2018-04-04] MEDS ORDERED: SIMETHICONE 80 MG CHEWABLE PO PRN (22:20)
[2018-04-04] MEDS ORDERED: KETOROLAC 30 MG/ML 1 ML VIAL IVP PRN (22:20)
[2018-04-04] MEDS ORDERED: LACTATED RINGERS 1,000 ML IV SCH (22:30)
--- NOTE | 2018-04-04 22:30 | P.OP ---
Date of Procedure: 04/04/18 Preoperative Diagnosis: #1. 39-0/7 weeks, induction #2. Suspected macrosomia #3. Undesired fertility #4. Arrest of dilation and descent #5. Suspected malposition Postoperative Diagnosis: Same Procedure(s) Performed: #1. Primary low-transverse section #2. Intraoperative bilateral tubal occlusion with Filshie clips Anesthesia: spinal Surgeon: Ricardo Mora Audio Visual Production Specialist #1: Harleen Watson Estimated Blood Loss (ml): 700 IV fluids (ml): 600 Urine output (ml): 200 Pathology: none sent Condition: stable Disposition: floor Operative Findings: Preoperative the, the patient had been approximately 6 cm dilated for approximately 4 hours with the head station still at -2, minimal descent from the beginning of the induction this morning. Examination indicated a probable malposition. As the patient was also having significant discomfort, she chose to proceed with primary low-transverse section with intraoperative bilateral tubal occlusion. She did sign consent to that effect both in the office and here on labor and delivery. She was taken the operating room where she was delivered of a viable 7 lbs. 10 oz. baby boy with Apgars of 8 at 1 minute and 9 at 5 minutes delivered in the right occiput transverse position. The head was wedged deep into the pelvis. The placenta was delivered manually, intact, and grossly normal with a grossly normal three-vessel cord. The uterus, tubes, and ovaries were entirely normal to inspection. Description of Procedure: The patient was prepped and draped in usual fashion after spinal anesthesia was administered by the anesthesiologist. A Pfannenstiel incision was made and extended into the abdominal cavity without difficulty. The Jessi self- retaining retractor was placed into the wound and opened properly. The bladder was noted to be far distal to the intended site of incision and was left intact. A 2 cm incision was made in the transverse plane of the lower uterine segment to enter the uterus at which time clear fluid was again noted. Incision was extended in both directions using the bandage scissors. The head was encountered deep within the pelvis in the right occiput transverse position and was elevated up and through the incision where the nose and mouth were thoroughly suctioned. A nuchal cord 1 was noted and reduced prior delivery of the . was then delivered onto the field where the cord was doubly clamped, cut, and the infant passed for resuscitative measures with weight and Apgars as noted above. A segment of cord was then doubly clamped, cut, and set aside should cord gases become necessary. The placenta was delivered manually and intact as noted above. The uterus was exteriorized and the interior cavity of the uterus swept of any remaining placental or membranous fragments. The margins of the incision were grasped with Barreto clamps and there was noted to be a small extension at the left angle. This was incorporated into the closure which was done in 2 layers. The first layer was a running locking stitch of 0 chromic catgut followed by a running imbricating stitch of 0 chromic catgut. Hemostasis appeared to be excellent. The posterior cul-de-sac was suctioned with a guard. After again eliciting verbal consent for tubal ligation, a Filshie clip was placed across the right fallopian tube approximately 2-3 cm from the cornu of the uterus and firmly closed. A similar operation was carried out on the left side without difficulty. The uterus was replaced within the abdominal cavity and the gutters were swept of any remaining blood, fluid, or clot. A careful examination of the incision again demonstrated hemostasis. Any small points of bleeding had been made hemostatic with the Bovie. The parietal peritoneum was then loosely reapproximated and layer of muscles examined and made hemostatic with the Bovie. The fascia was closed with 2 running stitches of 0 Vicryl proceeding from the lateral margins to the midpoint. The subcutaneous tissues were irrigated, made hemostatic with the Bovie, and reapproximated with a running stitch of 30 plain catgut. The skin was reapproximated with a running subcuticular stitch of 4-0 Vicryl followed by half-inch Steri-Strips placed with Mastisol. Estimated blood loss for the case was approximate 700 mL. There were no complications. All sponge, instrument, and needle counts were correct. The patient tolerated the procedure well and proceeded to the recovery room in stable condition. Both mother and are resting comfortably in recovery.
[2018-04-05] MEDS: LACTATED RINGERS 1,000 ML IV SCH (01:42)
--- NOTE | 2018-04-05 06:57 | P.PN ---
Progress Note - Text Progress Note Date: 04/05/18 Postoperative day 1 status post section under spinal anesthesia, and intrathecal morphine given for postoperative analgesia, patient doing well, there is no anesthesia related complications, Patient had no headache, vital signs stable , Assessment and plan= postop day 1 status post , doing well there is no anesthesia related complication.
[2018-04-05 09:11] LABS: Anisocytosis Slight; Basophils % (A) 0 %; Eosinophils % (A) 0 %; HCT 31.7 % (34.0-46.0); HGB 9.9 gm/dL (11.4-16.0); Hypochromasia Slight; Lymphocytes # (A) 1.1 k/uL (1.0-4.8); Lymphocytes % (A) 10 %; MCH 24.4 pg (25.0-35.0); MCHC 31.2 g/dL (31.0-37.0); MCV 78.2 fL (80.0-100.0); Mean Platelet Volume 6.7; Microcytosis Slight; Monocytes # (A) 0.3 k/uL (0-1.0); Monocytes % (A) 3 %; Neutrophils # (A) 9.1 k/uL (1.3-7.7); Neutrophils % (A) 86 %; Platelet Count 271 k/uL (150-450); RBC 4.05 m/uL (3.80-5.40); RDW 16.1 % (11.5-15.5); WBC 10.7 k/uL (3.8-10.6)
--- NOTE | 2018-04-05 09:16 | P.PNOBGPC ---
Subjective - Subjective Patient reports: Reports appetite normal, Reports voiding normally, Reports pain well controlled, Reports ambulating normally : doing well Objective - Vital Signs Latest vital signs: Vital Signs Temp Pulse Resp BP Pulse Ox 04/05/18 07:27 125/71 04/05/18 03:15 98.4 F 104 H 16 114/60 04/05/18 00:29 98.1 F 82 16 126/62 98 04/04/18 23:59 98.1 F 90 16 127/64 04/04/18 23:29 97.5 F L 88 16 117/64 99 04/04/18 23:14 99 16 109/61 98 04/04/18 22:59 104 H 16 101/57 98 04/04/18 22:43 103 H 16 104/52 98 04/04/18 22:29 97.8 F 100 16 104/48 97 Intake and Output 04/04/18 04/05/18 04/05/18 22:59 06:59 14:59 Intake Total 48.15 Output Total 900 800 Balance -900 -751.85 Intake: Intake, IV Titration 48.15 Amount Oxytocin 20 Units/1000 ml 48.15 Ns 1,000 ml @ 1 MILLIUNIT/MIN 3 mls/hr IV .Q24H [facility] Rx#:[id number] Output: Urine 900 800 Straight 700 Other: Voiding Method Indwelling Catheter - Exam Extremities: Present: normal Abdomen: Present: normal appearance, soft. Absent: distention, tenderness Incision: Present: normal, dry, intact Uterus: Present: normal, firm (The uterine fundus is tonic and nontender below the umbilicus.) Assessment and Plan (1) Term Current Visit: Yes Status: Acute Code(s): Z34.80 - ENCOUNTER FOR SUPRVSN OF NORMAL , UNSP TRIMESTER SNOMED Code(s): 00276116 (2) macrosomia Current Visit: Yes Status: Acute Code(s): O36.60X0 - MATERNAL CARE FOR EXCESS GROWTH, UNSP TRIMESTER, UNSP SNOMED Code(s): 45273712 (3) S/P section Current Visit: Yes Status: Acute Code(s): Z98.891 - HISTORY OF UTERINE SCAR FROM PREVIOUS SURGERY SNOMED Code(s): 186934096 Plan: Continue routine postoperative care. CBC is currently pending. I have encouraged the patient to ambulate in the hallways at least 4 times daily, more if possible. She is tolerating regular diet. Discharge may be as early as tomorrow pending no complications.
[2018-04-05] MEDS: SENNOSIDES-DOCUSATE SODIUM 1 EACH TAB PO SCH ×2 (10:24→20:26)
[2018-04-05 13:54] VITALS: RESP 18
[2018-04-05] MEDS ORDERED: SODIUM CHLORIDE 0.9% 100 ML BAG ONE (15:22)
[2018-04-05] MEDS ORDERED: fentaNYL (PF) 50 MCG/ML 5 ML AMP ONE (15:22)
[2018-04-05] MEDS ORDERED: ROPIVACAINE 5MG/ML 20ML VIAL ONE (15:22)
[2018-04-05] MEDS: IBUPROFEN 600 MG TAB PO PRN (20:26)
[2018-04-05] MEDS: diphenhydrAMINE 25 MG CAP PO PRN (20:29)
[2018-04-06] MEDS: ACETAMINOPHEN TAB 325 MG TAB PO PRN ×2 (00:55→08:12)
[2018-04-06] MEDS: IBUPROFEN 600 MG TAB PO PRN (03:51)
[2018-04-06] MEDS: diphenhydrAMINE 25 MG CAP PO PRN (08:10)
--- NOTE | 2018-04-06 08:59 | P.DS ---
Providers Date of admission: 04/04/18 06:17 Expected date of discharge: 04/06/18 Attending physician: Ricardo Mora Primary care physician: Jordin Lester - Discharge Diagnosis(es) (1) Term Current Visit: Yes Status: Acute (2) macrosomia Current Visit: Yes Status: Acute (3) S/P section Current Visit: Yes Status: Acute Hospital Course: The patient is a 27-year-old 4 para 2011 admitted at 39-0/7 weeks by good dating parameters. She is admitted for elective induction secondary to suspected macrosomia. Her was otherwise uncomplicated though she does have morbid obesity and is positive for group B strep. On labor and delivery, all signs reassuring. She had Pitocin augmentation started and underwent artificial rupture of membranes. She later had an epidural catheter placed for analgesia. She progressed to approximately 5-6 cm and then remain therefore and approximately 5 hours and was experiencing significant discomfort remote from delivery. The diagnosis of arrest of dilation and descent was made and she was taken the operating room where she was delivered of a viable 7 lbs. 10 oz. baby boy with Apgars of 8 at 1 minute and 9 at 5 minutes. Her postoperative course was unremarkable vital signs remaining stable and her temperature was afebrile throughout. She was deemed stable for discharge on day #2 and was discharged home to follow-up in the office in 2 weeks for an incision check and 6 weeks routinely. Discharge instructions included calling for any significantly increased bleeding or foul-smelling lochia, significantly increased fever abdominal pain, perineal complaints, breast complaints, incisional complaints, or anything else that concerned her. She was additionally instructed to have nothing in the vagina for at least 6 weeks time to include intercourse. She understood her instructions and agrees follow up as noted above. Discharge medications included [id number] analgesic pain medications as well as a prescription for Tylenol 3, 1-2 by mouth every 6 hours when necessary pain, #20 dispensed with no refills. Maternal blood type is A+ and rubella status is immune. Discharge hemoglobin and hematocrit were 9.9 and 31.7 respectively. Procedures: #1. Pitocin induction #2. Artificial rupture of membranes #3. Epidural analgesia #4. Primary low-transverse section #5. Intraoperative bilateral tubal occlusion with Filshie clips Patient Condition at Discharge: Stable Plan - Discharge Summary New Discharge Prescriptions: No Action Ijo-Vprf-Waozq Acid [-U Capsule (formulary)] 1 cap PO DAILY Ferrous Sulfate [Feosol] 650 mg PO DAILY Cholecalciferol [Vitamin D3] 2,000 unit PO DAILY Discharge Medication List Ferrous Sulfate [Feosol] 650 mg PO DAILY 10/19/16 [History] Heb-Qvee-Gabtw Acid [-U Capsule (formulary)] 1 cap PO DAILY [History] Cholecalciferol [Vitamin D3] 2,000 unit PO DAILY 12/31/17 [History] Follow up Appointment(s)/Referral(s): Ricardo Mora MD [STAFF PHYSICIAN] - 2 Weeks Discharge Disposition: HOME SELF-CARE
[2018-04-06] MEDS: SENNOSIDES-DOCUSATE SODIUM 1 EACH TAB PO SCH (09:54)
[2018-04-06 15:16] VITALS: BP 112/76; PULSE 100; TEMP 98.4
== END 2018-04-06 16:25 | disposition home or self-care (01) | DRG 785 ==
LOC: 4FBP 06:17
PROVIDERS: ADMIT Obstetrics & Gynecology; ATTEND Obstetrics & Gynecology
PROC: 0UL70CZ Occlusion of Bilateral Fallopian Tubes with Extraluminal Device, Open Approach (ICD-10-PCS; 2018-04-04)
PROC: 10907ZC Drainage of Amniotic Fluid, Therapeutic from Products of Conception, Via Natural or Artificial Opening (ICD-10-PCS; 2018-04-04)
PROC: 00HU33Z Insertion of Infusion Device into Spinal Canal, Percutaneous Approach (ICD-10-PCS; 2018-04-04)
PROC: 3E0R3NZ Introduction of Analgesics, Hypnotics, Sedatives into Spinal Canal, Percutaneous Approach (ICD-10-PCS; 2018-04-04)
PROC: 10D00Z1 Extraction of Products of Conception, Low, Open Approach (ICD-10-PCS; principal; 2018-04-04 21:12)
DX: O62.1 Secondary uterine inertia (principal); O36.60X0 Maternal care for excessive fetal growth, unspecified trimester, not applicable or unspecified; O99.214 Obesity complicating childbirth; E66.01 Morbid (severe) obesity due to excess calories; Z3A.39 39 weeks gestation of pregnancy; Z37.0 Single live birth; O99.824 Streptococcus B carrier state complicating childbirth; O99.02 Anemia complicating childbirth; D64.9 Anemia, unspecified; Z30.2 Encounter for sterilization
CPT/HCPCS: 85025; 86850; 86900; 86901

== ENCOUNTER → 2021-04-16 | Outpatient (CLI) | payer OTHER ==
[2021-04-16 13:15] VITALS: BP 144/78; PULSE 89; TEMP 98.4; BMI 50.1
--- NOTE | 2021-04-16 13:55 | P.HPBAR ---
Bariatric H&P - History & Physicial H&P Date: 04/16/21 History & Physicial: Visit/CC: initial clinic visit Patient initial contact: Initial weight: Initial weight in pounds: Height: 5 ft 4.5 in Initial BMI: Last weight: Current weight: 134.717 kg Current weight in pounds: 297.00 Current BMI: 50.1 [place] body weight (based on NIH guidelines): 55.565 kg Excess body weight loss: The patient is a 30 year-old F who presents for Bariatric Assessment. DATE OF SERVICE: 04/16/2021 REASON FOR CONSULTATION: Initial bariatric evaluation. HISTORY OF PRESENT ILLNESS: Vaibhav Rhoades is a 30-year-old female who comes with lifelong morbid obesity. She presents for the first time in consultation. She has rried Adipex with 50 to 60 pound weight loss. She has regained weight all of her weight. She works out. Her highest weight is 327 pounds. Her mother has troubles with her weight. She has lower back pain. She denies no hip pain, no knee pain. She has ankle pain. She has not foot pain. She has chronic fatigue with sleeping. She is not aware of snoring. She has a toddler. She denies inflammatory bowel disease. Her mother had blood clots. Grandfather had colon cancer. She denies blood in stools. She reports occasional heartburn. She is looking into the sleeve. She reports second hand tobacco exposure but no formal smoking. She has right flank and right upper quadrant pain. She still has her gallbladder and has worsened symptoms after weight loss. At height of 5 feet 4.5 inches, her ideal body weight is 144 pounds. Her highest weight is 327 pounds, body mass index 55.4. She comes in 296 pounds. Her body mass index is 50.2. She is 152 pounds overweight. PAST MEDICAL HISTORY: 1. Morbid obesity due to excess calories 2. Body mass index of 50.2 3. Anemia 4. Osteoarthritis of the lower back 5. Osteoarthritis of the ankles 6. Chronic fatigue 7. Gastroesophageal reflux disease PAST SURGICAL HISTORY: 1. Dilation and curettage HOME MEDICATIONS: Home Medications Medication Instructions Recorded Confirmed Ferrous Sulfate [Iron (65 MG 650 mg PO DAILY 10/19/16 06/11/21 Elemental)] Calcium Citrate/Vitamin D3 2 each PO DAILY 06/11/21 06/11/21 [Citracal + D Maximum Caplet] Vitamin A [Vitamin A (8,000 Units 4,800 mcg PO DAILY 06/11/21 06/11/21 = 2,400 MCG)] Zinc 50 mg PO DAILY 06/11/21 06/11/21 Previous Rx's Medication Instructions Recorded Omeprazole [PriLOSEC] 40 mg PO DAILY #30 cap 06/16/21 ALLERGIES: Allergies Allergy/AdvReac Type Severity Reaction Status Date / Time No Known Allergies Allergy Verified 06/11/21 12:35 SOCIAL HISTORY: Denies current tobacco use. FAMILY HISTORY: No family history of ulcerative colitis disease or Crohn's d isease. Family history of morbid obesity. No lupus in the family. No reports of stomach or esophageal cancer. She reports her grandmother had obesity. Her mother had blood clots. Grandfather had colon cancer. REVIEW OF ORGAN SYSTEMS: CONSTITUTIONAL: At height of 5 feet 4.5 inches, her ideal body weight is 144 pounds. Her highest weight is 327 pounds, body mass index 55.4. She comes in 296 pounds. Her body mass index is 50.2. She is 152 pounds overweight. HEENT: Denies any active troubles with vision or hearing. ENDOCRINE: Denies diabetes. Denies hypothyroidism. CARDIOVASCULAR: Denies past reports of palpitations or heart attacks or chest pain. RESPIRATORY: Has daytime somnolence and snores. GASTROINTESTINAL: Denies any bright red blood per rectum. No diarrhea. No constipation. Has gastroesophageal reflux disease. GENITOURINARY: Denies bladder urgency. No recent blood in urine MUSCULOSKELETAL: Has lower back pain and joint pain. Denies history of bilateral lower extremity edema. NEURO: Denies chronic migraines. No seizure disorders. PSYCH: Denies depression. No suicidal ideation. RHEUMATOLOGIC: No lupus. No rheumatoid arthritis. HEMATOLOGIC: Denies any abnormal bleeding or bruising. Denies past history of DVTs. SKIN: No rash. No skin cancer. PHYSICAL EXAM: VITAL SIGNS: Height 5 foot 4.5 inches, weight 296 pounds. BMI 50.2 Vital Signs Temp 98.4 F 04/16/21 13:13 Pulse 89 04/16/21 13:13 Resp BP 144/78 04/16/21 13:13 Pulse Ox GENERAL: Well-developed in no acute distress. HEENT: No scleral icterus. Extraocular movements grossly intact. Hears conversational speech. No nasal drainage. NECK: Supple without lymphadenopathy. CHEST: Nonlabored respirations with equal bilateral excursions. CARDIOVASCULAR: Regular rate and regular rhythm. Distal 2+ pulses. ABDOMEN: Obese, soft, nontender, nondistended. MUSCULOSKELETAL: No clubbing, cyanosis. NEURO: No focal or lateralizing signs. Cranial nerves 2 through 12 grossly within normal limits. PSYCH: Appropriate affect. Alert and oriented to person, place and time. SKIN: Good skin turgor. Well perfused. ASSESSMENT: 1. Morbid obesity due to excess calories 2. Body mass index of 50.2 3. Anemia 4. Osteoarthritis of the lower back 5. Osteoarthritis of the ankles 6. Chronic fatigue 7. Gastroesophageal reflux disease 8. Second hand tobacco exposure PLAN: 1. Surgical options including a band, gastric bypass, sleeve gastrectomy were described in detail. Alternatives such as gastric balloon including duodenal switch were described. 2. The [place] bariatric surgical collaborative data and outcomes calculator were described with surgical options. 3. Recommend a bariatric metabolic panel to evaluate for micro- including macronutrient deficiencies. 4. For history of daytime somnolence, recommend evaluation and treatment for sleep apnea. 5. Dietary surveillance and counseling was reviewed. Increased protein intake over 65 grams daily advised. 6. Will need cardiac risk assessment. 7. Recommend medical risk assessment. 8. Psych assessment per insurance guidelines. 9. Recommend upper endoscopy. 10. Recommend 12-lead EKG. 11. Recommend urine nicotine testing pre-op 12. Recommend urine drug screen 13. Recommend colonoscopy for family history of colon cancer. 14. She has her gallbladder and reports worsened abdominal pain after weight loss. Recommend ultrasound of the gallbladder for right upper quadrant pain including HIDA scan advised. Thank you for this consultation. Past Medical History Past Medical History: No Reported History Additional Past Medical History / Comment(s): anemia History of Any Multi-Drug Resistant Organisms: None Reported Past Surgical History: No Surgical Hx Reported Additional Past Surgical History / Comment(s): D&C 2018 Past Anesthesia/Blood Transfusion Reactions: No Reported Reaction Past Psychological History: No Psychological Hx Reported Smoking Status: Never smoker Past Alcohol Use History: None Reported Past Drug Use History: None Reported - Past Family History Father History Unknown: Yes Surgical - Exam Vital Signs Temp Pulse BP 98.4 F 89 144/78 04/16/21 13:13 04/16/21 13:13 04/16/21 13:13 Results - Labs 04/16/21 15:03 04/16/21 15:03 Bariatric Checklist Checklist: Plan: Checklist: EGD: 1. Hiatal hernia: 2. H. Pylori: HgbA1c: Vitamin D: Smoking: Never smoker Primary care physician referral: dr martin Psychiatry clearance: Cardiology clearance: Sleep study: Diet journal: VTE risk score: VTE risk level: Rehab needs at discharge:
[2021-04-16 15:46] LABS: INR 0.9 (<1.2); Partial Thromboplastin Time 27.7 sec (22.0-30.0)
[2021-04-16 18:46] LABS: HCT 35.4 % (37.2-46.3); HGB 10.5 g/dL (12.0-15.0); MCH 24.1 pg (27.0-32.0); MCHC 29.7 g/dL (32.0-37.0); MCV 81.2 fL (80.0-97.0); Mean Platelet Volume 10.4 fL (9.5-12.2); NRBC Per 100 WBC 0 /100 WBCS (0.0-0.0); Platelet Count 376 X 10*3/uL (140-440); RBC 4.36 X 10*6/uL (4.10-5.20); RDW 14.4 % (11.5-14.5); WBC 5.58 X 10*3/uL (4.50-10.00)
[2021-04-16 19:04] LABS: Chol/HDL Ratio 3.09 Ratio; LDL Cholesterol,Calculated 73.4 mg/dL (0.0-131.0); VLDL Calculation 19.88 mg/dL (5.00-40.00)
[2021-04-16 22:06] LABS: % Iron Saturation 6.53 (12.00-45.00); ALT 13 U/L (8-44); AST 17 U/L (13-35); African American GFR (CKD) 143.6 (60.0-200.0); Albumin 4.2 g/dL (3.8-4.9); Albumin/Globulin Ratio 1.25 (1.60-3.17); Alkaline Phosphatase 96 U/L (41-126); BUN/Creat Ratio 13.87 Ratio (12.00-20.00); Blood Urea Nitrogen 7.7 mg/dL (9.0-27.0); Calcium 9.4 mg/dL (8.7-10.3); Chloride 101 mmol/L (96-109); Ferritin 40.5 ng/mL (10.0-291.0); Globulin 3.4 g/dL (1.6-3.3); Glucose 93 mg/dL (70-110); Iron 26 ug/dL (50-170); Magnesium 2.1 mg/dL (1.5-2.4); Non-African American GFR(CKD) 123.9 (60.0-200.0); Phosphorus 3.2 mg/dL (2.4-5.1); Potassium 3.9 mmol/L (3.5-5.5); Sodium 137 mmol/L (135-145); Total Bilirubin <0.15 mg/dL (0.30-1.20); Total Iron Binding Capacity 395 ug/dL (228-460); Total Protein 7.6 g/dL (6.2-8.2)
[2021-04-17 12:10] LABS: Zinc, Serum 50 ug/dL (60-130)
[2021-04-18 06:12] LABS: Vit B1(Thiamine) 51 ug/L (38-122)
[2021-04-19 10:43] LABS: Selenium 129 mcg/L (63-160)
[2021-04-19 13:28] LABS: Anabasine Urine <2.0 ng/mL (<2.0)
[2021-04-22 06:17] LABS: Vitamin A 33 ug/dL (38-106)
== END ==
LOC: BARWHC3 12:39
PROVIDERS: ATTEND Surgery Plastic and Reconstructive Surgery
DX: E66.01 Morbid (severe) obesity due to excess calories (principal); D64.9 Anemia, unspecified; M47.9 Spondylosis, unspecified; M19.071 Primary osteoarthritis, right ankle and foot; M19.072 Primary osteoarthritis, left ankle and foot; K21.9 Gastro-esophageal reflux disease without esophagitis; R53.82 Chronic fatigue, unspecified; Z68.43 Body mass index [BMI] 50.0-59.9, adult
CPT/HCPCS: 84255; 84134; 84425; 80061; 80053; 82607; 82728; 82525; 82746; 83540; 83550; 83735; 84100; 84443; 84590; 84630; 85027; 85610; 85730; 82306; 83970; 80307; 93005; 36415; G0480; G0482; G0463; 80323; 99211

== ENCOUNTER 2021-06-16 06:37 | Day surgery (SDC) | payer OTHER ==
[2021-06-11 12:45] VITALS: BMI 50.4
[~2021-06-16 06:37] MED LIST: LACTATED RINGERS 1,000 ML IV SCH
[2021-06-16 07:24] VITALS: TEMP 97
[2021-06-16] MEDS ORDERED: LIDOCAINE 1% (10MG/ML) FOR IV START INTRADERMA ONE (07:30)
[2021-06-16] MEDS ORDERED: LIDOCAINE 1% INJ 10MG/ML (20 ML MDV) ONE (07:46)
[2021-06-16] MEDS ORDERED: PROPOFOL 10 MG/ML 20 ML VIAL IV ONE (07:46)
[2021-06-16] MEDS ORDERED: MIDAZOLAM 2 MG/2 ML VIAL ONE (07:46)
--- NOTE | 2021-06-16 07:50 | P.GSHP ---
History of Present Illness H&P Date: 06/16/21 CHIEF COMPLAINT: GERD HISTORY OF PRESENT ILLNESS: The patient is a 30-year-old female who presents reports gastroesophageal reflux disease. Upper endoscopy was offered for further evaluation and management. PAST MEDICAL HISTORY: Please see list. PAST SURGICAL HISTORY: Please see list. MEDICATIONS: Please see list. ALLERGIES: Please see list. SOCIAL HISTORY: No illicit drug use FAMILY HISTORY: No reports of Crohn disease or ulcerative colitis. REVIEW OF ORGAN SYSTEMS: CONSTITUTIONAL: No reports of fevers or chills. GI: Denies any blood in stools or constipation. PHYSICAL EXAM: VITAL SIGNS: Stable GENERAL: Well-developed and pleasant in no acute distress. HEENT: No scleral icterus. Extraocular movements grossly intact. Moist buccal mucosa. NECK: Supple without lymphadenopathy. CHEST: Unlabored respirations. Equal bilateral excursions. CARDIOVASCULAR: Regular rate and rhythm. Distal 2+ pulses. ABDOMEN: Soft, nondistended. MUSCULOSKELETAL: No clubbing, cyanosis, or edema. ASSESSMENT: 1. Gastroesophageal reflux disease PLAN: 1. Recommend proceeding with an upper endoscopy Past Medical History Past Medical History: No Reported History Additional Past Medical History / Comment(s): anemia. HAD IRON INFUSION 05/05/21 History of Any Multi-Drug Resistant Organisms: None Reported Past Surgical History: Section Additional Past Surgical History / Comment(s): D&C 2018 Past Anesthesia/Blood Transfusion Reactions: No Reported Reaction Smoking Status: Never smoker - Past Family History Father History Unknown: Yes Medications and Allergies Home Medications Medication Instructions Recorded Confirmed Type Ferrous Sulfate [Feosol] 650 mg PO DAILY 10/19/16 06/11/21 History Calcium Citrate/Vitamin D3 2 each PO DAILY 06/11/21 06/11/21 History [Citracal + D Maximum Caplet] Vitamin A [Vitamin A (8,000 Units 4,800 mcg PO DAILY 06/11/21 06/11/21 History = 2,400 MCG)] Zinc 50 mg PO DAILY 06/11/21 06/11/21 History Allergies Allergy/AdvReac Type Severity Reaction Status Date / Time No Known Allergies Allergy Verified 06/11/21 12:35 Surgical - Exam Vital Signs Temp Pulse Resp BP Pulse Ox 97.0 F L 81 16 128/86 98 06/16/21 07:23 06/16/21 07:23 06/16/21 07:23 06/16/21 07:23 06/16/21 07:23
--- NOTE | 2021-06-16 08:14 | P.PCN ---
Date of Procedure: 06/16/21 Description of Procedure: PREOPERATIVE DIAGNOSIS: Gastroesophageal reflux disease. Morbid obesity. POSTOPERATIVE DIAGNOSIS: Gastroesophageal reflux disease. Morbid obesity. Gastritis with bleeding Gastric ulcers OPERATION: Esophagogastroduodenoscopy with biopsies along antrum. SURGEON: Harleen Lujan MD ANESTHESIA: MAC. INDICATIONS: The patient is a 30-year-old female who presents with reflux disease. Benefits and risks of the procedure were described. Informed consent was obtained. DESCRIPTION: The patient was brought into the endoscopy suite and laid in the left lateral decubitus position. An Olympus gastroscope was passed along the posterior oropharynx down to the distal esophagus where the squamocolumnar junction was encountered at 40 cm from the incisors. The stomach was entered and no bile reflux was found. Additional findings are listed below. Biopsies with cold forceps were obtained of the antrum. The first through third portion of the duodenum was examined and unremarkable. Retroflexion of the scope confirmed Hill grade 3 lower esophageal valve. The squamocolumnar junction demonstrated LA grade B erosive esophagitis. The stomach was desufflated. The patient tolerated the procedure well. FINDINGS: Squamocolumnar junction 40 cm from the incisors. Diaphragmatic hiatus at 40 cm. Hill grade 4 lower esophageal valve. LA grade B erosive esophagitis. No active duodenitis. Chronic gastritis with recent bleed Gastric ulcer along antrum with cold forcep biopsy RECOMMENDATIONS: Omeprazole 40 mg daily
--- NOTE | 2021-06-16 08:16 | P.PCN ---
Date of Procedure: 06/16/21 Description of Procedure: PREOPERATIVE DIAGNOSIS: Change in bowel habits Family history colon cancer POSTOPERATIVE DIAGNOSIS: Change in bowel habits Family history colon cancer OPERATION: Colonoscopy with random cold forceps biopsies for microscopic colitis Colonoscopy to the cecum, ileocecal valve and appendiceal orifice. SURGEON: Harleen Lujan MD. ANESTHESIA: MAC. INDICATIONS: The patient is a 30-year-old female who presents with change in bowel habits including family history of colon cancer. Benefits and risks were described and informed consent was obtained. DESCRIPTION OF PROCEDURE: The patient had undergone Sutab prep. The patient had been brought into the operating room and laid in the left lateral decubitus position. After adequate intravenous sedation, the rectum was examined with 2% lidocaine jelly. External hemorrhoids were encountered. The rectal tone was within normal limits. No lesions were palpated in the rectal vault. An Olympus colonoscope was advanced until the cecum, ileocecal valve and appendiceal orifice were clearly viewed. The prep was fair. Random biopsies were obtained with cold forcep biopsies for microscopic colitis. No colonic polyps were found. Retroflexion of the scope demonstrated grade 1 internal hemorrhoids without active bleeding or infl ammation. The colon was desufflated. The patient had tolerated the procedure well. Withdrawal time was over 6 minutes. FINDINGS: Aronchick preparation quality scale 2+ (1-5) Internal hemorrhoids, grade 1 External prolapsed hemorrhoids, grade 1 No arteriovenous malformations. No adenomatous polyps. Random biopsies obtained for microscopic colitis RECOMMENDATIONS: Lower endoscopy in 5 years, 2026 due to high risk familial history of colon cancer Plan - Discharge Summary Discharge Rx Participant: No New Discharge Prescriptions: New Omeprazole [PriLOSEC] 40 mg PO DAILY #30 cap Continue Ferrous Sulfate [Iron (65 MG Elemental)] 650 mg PO DAILY Vitamin A [Vitamin A (8,000 Units = 2,400 MCG)] 4,800 mcg PO DAILY Calcium Citrate/Vitamin D3 [Citracal + D Maximum Caplet] 2 each PO DAILY Zinc 50 mg PO DAILY Discharge Medication List Ferrous Sulfate [Iron (65 MG Elemental)] 650 mg PO DAILY 10/19/16 [History] Calcium Citrate/Vitamin D3 [Citracal + D Maximum Caplet] 2 each PO DAILY 06/11/21 [History] Vitamin A [Vitamin A (8,000 Units = 2,400 MCG)] 4,800 mcg PO DAILY 06/11/21 [History] Zinc 50 mg PO DAILY 06/11/21 [History] Omeprazole [PriLOSEC] 40 mg PO DAILY #30 cap 06/16/21 [Rx] Follow up Appointment(s)/Referral(s): Harleen Lujan MD [STAFF PHYSICIAN] - [facility] [place] [facility] - 07/02/21 Patient Instructions/Handouts: *Surgery [facility] - (Anesthesia) Endoscopy Discharge Instructions, Gastritis (DC), Diet for Stomach Ulcers and Gastritis (ED) Activity/Diet/Wound Care/Special Instructions: Repeat colonoscopy in 5 years, 2026 Discharge Disposition: HOME SELF-CARE
--- NOTE | 2021-06-16 08:19 | P.HPADDEND ---
H&P Addendum H&P Addendum Date: 06/16/21 Colonoscopy advised for change in bowel habits and family history of colon cancer.
[2021-06-16 08:38] VITALS: BP 121/78; PULSE 89; RESP 16
== END 2021-06-16 09:04 | disposition home or self-care (01) ==
LOC: ORWHC2ENDO 06:37
PROVIDERS: ATTEND Surgery Plastic and Reconstructive Surgery
DX: K29.50 Unspecified chronic gastritis without bleeding (principal); K21.9 Gastro-esophageal reflux disease without esophagitis; E66.01 Morbid (severe) obesity due to excess calories; R19.4 Change in bowel habit; Z80.0 Family history of malignant neoplasm of digestive organs; K64.4 Residual hemorrhoidal skin tags; K64.0 First degree hemorrhoids
CPT/HCPCS: 45380; 43239; 81025; 88305; J2250; J2001; J2704

== ENCOUNTER → 2021-06-18 | Outpatient (CLI) | payer OTHER ==
--- NOTE | 2021-06-18 18:00 | CONS ---
CONSULTATION DATE OF SERVICE: 06/18/2021 This 30-year-old lady has been evaluated in [facility] for possible obstructive sleep apnea-hypopnea syndrome and difficulties initiating sleep. HISTORY OF PRESENT ILLNESS/SLEEP-WAKE EVALUATION: Patient's usual sleep schedule is from 11 p.m. to 7 or 7:30 a.m., basically 7 days a week. She has problems with falling asleep; has a TV set in the bedroom. Usually she sleeps on the side position. She sleeps by herself, so there is no clear information about her snoring. She wakes up from sleep up to 3 times with nocturia. In the morning the patient wakes up tired, falling asleep during the day. [place] Sleepiness Scale increased to 10. She sometimes takes a nap at noon time. No history of vivid dreams, hypnagogic hallucinations or cataplexy. PAST MEDICAL HISTORY: Positive for iron deficiency anemia, peptic ulcer disease, headaches. PAST SURGICAL HISTORY: . MEDICATIONS: Omeprazole, calcium supplement, vitamin supplements. SOCIAL HISTORY: Negative for smoking. Alcohol consumption rarely. FAMILY HISTORY: Hypertension, heart problems, stroke, asthma, diabetes, sleep apnea. REVIEW OF SYSTEMS: Multiple awakenings from sleep, sleepiness during the day, difficulties initiating sleep at the beginning of the night. No fevers. No double vision. No recent chest pain. No shortness of breath. No abdominal pain. No bleeding episodes. No blood in the urine. No seizure episodes. PHYSICAL EXAMINATION: GENERAL: Pleasant -[place] lady without distress. VITAL SIGNS: BP 134/81, HR 89, RR 16, height 5 feet 4 inches, weight 296.8 pounds, body mass index 50.8, temperature 97.2, oxygen saturation at room air 98%. HEENT: PERRLA, EOMI, evaluation of oropharynx showed tongue protrudes midline. Low position of soft palate; Mallampati III. NECK: Supple, no JVD. Thyroid is not palpable. Neck measures 16-1/4 inches in circumference. LUNGS: Clear to percussion and to auscultation. Good air exchange. No wheezing or rhonchi. HEART: S1, S2 regular. No murmurs, gallops, or rubs. ABDOMEN: Obese. EXTREMITIES: No clubbing or cyanosis. SALES AGENT FINANCIAL REPORT SERVICE: Awake, alert, and oriented X3. Cranial nerves 2 to 7 intact. There is no fasciculation or atrophy. noted. No focal deficits observed. IMPRESSION: 1. Multiple awakenings from sleep with nocturia. No information about snoring; patient sleeps by herself. Low position of soft palate, Mallampati III, wide neck, 16-1/4 inches in circumference, sleepiness, [place] Sleepiness Scale increased to 10; obstructive sleep apnea-hypopnea syndrome. 2. Obesity; body mass index 50.8. 3. History of iron deficiency anemia. 4. History of peptic ulcer disease. 5. History of headaches. 6. Status post . PLAN: 1. Polysomnography for evaluation of patient's breathing during sleep. 2. CPAP/BiPAP titration if sleep study confirms obstructive sleep apnea-hypopnea syndrome. 3. Preferable position during sleep on the side. 4. No driving if patient feels any sleepiness. 5. I will see patient for follow up visit to explain results of testing and following plan. Thank you very much for referring this patient for consultation. Sincerely, Reji Walls MD, PhD, FAASM Diplomat of [place] [employer] Sleep Medicine Board of [place] [employer] [facility] [employer] [place] MMODL / IJN: [id number] /
== END ==
LOC: SLEEP 09:50
PROVIDERS: ATTEND Internal Medicine
DX: G47.33 Obstructive sleep apnea (adult) (pediatric) (principal); E66.9 Obesity, unspecified; Z68.43 Body mass index [BMI] 50.0-59.9, adult; Z86.2 Personal history of diseases of the blood and blood-forming organs and certain disorders involving the immune mechanism; Z87.11 Personal history of peptic ulcer disease; Z87.59 Personal history of other complications of pregnancy, childbirth and the puerperium
CPT/HCPCS: 99211

== ENCOUNTER → 2021-07-18 | Outpatient (CLI) | payer OTHER ==
--- NOTE | 2021-07-18 07:30 | US ---
EXAMINATION TYPE: US gallbladder DATE OF EXAM: 07/18/2021 COMPARISON: NONE CLINICAL HISTORY: RIGHT UPPER QUADRANT PAIN. pre bariatric sleeve testing, ruq pain EXAM MEASUREMENTS: Liver Length: 19.2 cm Gallbladder Wall: 0.2 cm CBD: 0.4 cm Right Kidney: 10.3 x 4.9 x 4.6 cm Pancreas: wnl Liver: difficult to penetrate, enlarged Gallbladder: wnl Evidence for sonographic Rodriguez's sign: no CBD: wnl Right Kidney: wnl IMPRESSION: Hepatic steatosis.
--- NOTE | 2021-07-18 10:06 | NM ---
Nuclear medicine hepatobiliary scan. HISTORY: Pain. DOSAGE: The patient received 8 ounces of ensure plus and 4.3 mCi of Technetium 99m Choletec. FINDINGS: There is normal hepatic extraction. The gallbladder is seen by 20 minutes. There is bilia ry to bowel clearance by 40 minutes. Ejection fraction is 82%. IMPRESSION: 1. Normal hepatobiliary exam
--- NOTE | 2021-07-18 10:16 | XR ---
EXAMINATION TYPE: XR chest 1V DATE OF EXAM: 07/18/2021 COMPARISON: NONE HISTORY: Preop TECHNIQUE: Single frontal view of the chest is obtained. FINDINGS: There is no focal air space opacity, pleural effusion, or pneumothorax seen. The cardiac silhouette size is within normal limits. The osseous structures are intact. Heart size at upper miller its of normal. No overt failure IMPRESSION: No acute process.
== END | disposition home or self-care (01) ==
LOC: RADUSWWP 06:54
PROVIDERS: ATTEND Surgery Plastic and Reconstructive Surgery
DX: Z01.818 Encounter for other preprocedural examination (principal); K76.0 Fatty (change of) liver, not elsewhere classified
CPT/HCPCS: 71045; 76705; 78226; A9537

== ENCOUNTER → 2021-09-22 | Outpatient (CLI) | payer OTHER ==
[2021-09-22 10:55] VITALS: BMI 51.2
== END ==
LOC: BARWHC3 08:43
PROVIDERS: ATTEND Surgery Plastic and Reconstructive Surgery
DX: E66.01 Morbid (severe) obesity due to excess calories (principal); Z71.3 Dietary counseling and surveillance; Z68.43 Body mass index [BMI] 50.0-59.9, adult
CPT/HCPCS: 97804

== ENCOUNTER → 2021-10-13 | Outpatient (CLI) | payer OTHER ==
[2021-10-13 13:10] LABS: INR 0.9 (<1.2); Partial Thromboplastin Time 27.6 sec (22.0-30.0); Prothrombin Time 10.1 sec (9.0-12.0)
[2021-10-13 17:56] LABS: HCT 37.3 % (37.2-46.3); HGB 11.4 g/dL (12.0-15.0); MCH 25.2 pg (27.0-32.0); MCHC 30.6 g/dL (32.0-37.0); MCV 82.5 fL (80.0-97.0); Mean Platelet Volume 9.9 fL (9.5-12.2); NRBC Per 100 WBC 0 /100 WBCS (0.0-0.0); Platelet Count 338 X 10*3/uL (140-440); RBC 4.52 X 10*6/uL (4.10-5.20); RDW 14.6 % (11.5-14.5); WBC 4.87 X 10*3/uL (4.50-10.00)
[2021-10-13 18:35] LABS: % Iron Saturation 17.66 (12.00-45.00); ALT 14 U/L (8-44); AST 17 U/L (13-35); African American GFR (CKD) 141.1 (60.0-200.0); Albumin 4.3 g/dL (3.8-4.9); Albumin/Globulin Ratio 1.39 (1.60-3.17); Alkaline Phosphatase 104 U/L (41-126); BUN/Creat Ratio 13.17 Ratio (12.00-20.00); Blood Urea Nitrogen 7.7 mg/dL (9.0-27.0); Calcium 9.8 mg/dL (8.7-10.3); Carbon Dioxide 26.4 mmol/L (20.0-27.5); Chloride 104 mmol/L (96-109); Ferritin 99.2 ng/mL (10.0-291.0); Globulin 3.1 g/dL (1.6-3.3); Glucose 103 mg/dL (70-110); Iron 61 ug/dL (50-170); Magnesium 2.2 mg/dL (1.5-2.4); Non-African American GFR(CKD) 121.8 (60.0-200.0); Phosphorus 2.6 mg/dL (2.4-5.1); Potassium 4.6 mmol/L (3.5-5.5); Sodium 138 mmol/L (135-145); Total Iron Binding Capacity 347 ug/dL (228-460); Total Protein 7.4 g/dL (6.2-8.2)
[2021-10-13 18:43] LABS: LDL Cholesterol,Calculated 71.6 mg/dL (0.0-131.0); Prealbumin 15.3 mg/dL (18.0-42.0); VLDL Calculation 16.52 mg/dL (5.00-40.00)
[2021-10-14 11:56] LABS: Zinc, Serum 70 ug/dL (60-130)
== END | disposition home or self-care (01) ==
LOC: LABPAT 11:47
PROVIDERS: ATTEND Surgery Plastic and Reconstructive Surgery
DX: E89.1 Postprocedural hypoinsulinemia (principal); E66.01 Morbid (severe) obesity due to excess calories; D50.8 Other iron deficiency anemias; K91.2 Postsurgical malabsorption, not elsewhere classified; E44.0 Moderate protein-calorie malnutrition; E45 Retarded development following protein-calorie malnutrition; E55.9 Vitamin D deficiency, unspecified; K74.1 Hepatic sclerosis; N19 Unspecified kidney failure; T56.894A Toxic effect of other metals, undetermined, initial encounter
CPT/HCPCS: 84255; 84134; 84425; 80061; 80053; 82607; 82728; 82525; 82746; 83540; 83550; 83735; 84100; 84443; 84590; 84630; 85027; 85610; 85730; 82306; 83970; 83036; G0480; 80323

== ENCOUNTER → 2021-12-08 | Outpatient (CLI) | payer OTHER ==
[2021-12-08 16:49] LABS: Basophils # (A) 0.04 X 10*3/uL (0.00-0.10); Basophils % (A) 0.9 %; Eosinophils % (A) 2.1 %; HCT 37.3 % (37.2-46.3); Immature Grans, Automated 0.2 %; Lymphocytes # (A) 1.85 X 10*3/uL (0.90-5.00); Lymphocytes % (A) 39.5 %; MCH 25.7 pg (27.0-32.0); MCHC 32.2 g/dL (32.0-37.0); MCV 79.9 fL (80.0-97.0); Mean Platelet Volume 9.9 fL (9.5-12.2); Monocytes # (A) 0.34 X 10*3/uL (0.20-1.00); Monocytes % (A) 7.3 %; NRBC Per 100 WBC 0 /100 WBCS (0.0-0.0); Neutrophils # (A) 2.34 X 10*3/uL (1.80-7.70); Platelet Count 360 X 10*3/uL (140-440); RBC 4.67 X 10*6/uL (4.10-5.20); WBC 4.68 X 10*3/uL (4.50-10.00)
[2021-12-08 17:00] LABS: African American GFR (CKD) 135.1 (60.0-200.0); Albumin 4.5 g/dL (3.8-4.9); Albumin/Globulin Ratio 1.22 (1.60-3.17); Anion Gap 10.8 mmol/L (10.00-18.00); BUN/Creat Ratio 15.04 Ratio (12.00-20.00); Calcium 9.9 mg/dL (8.7-10.3); Carbon Dioxide 25.2 mmol/L (20.0-27.5); Globulin 3.7 g/dL (1.6-3.3); Non-African American GFR(CKD) 116.6 (60.0-200.0); Potassium 4.2 mmol/L (3.5-5.5); Total Bilirubin 0.3 mg/dL (0.30-1.20); Total Protein 8.2 g/dL (6.2-8.2)
== END | disposition home or self-care (01) ==
LOC: LABPAT 10:19
PROVIDERS: ATTEND Surgery Plastic and Reconstructive Surgery
DX: Z01.812 Encounter for preprocedural laboratory examination (principal)
CPT/HCPCS: 80053; 85025

== ENCOUNTER → 2021-12-18 | Outpatient (CLI) | payer OTHER ==
[~2021-12-18] MED LIST changes: -LACTATED RINGERS 1,000 ML IV SCH; +SODIUM CHLORIDE 0.9% 500 ML 500 ML in EMPTY BAG 1 BAG IV PRN
[2021-12-18 08:54] VITALS: BP 142/84; PULSE 89; RESP 16; TEMP 98.8
[2021-12-18] MEDS: SODIUM CHLORIDE 0.9% 1,000 ML IV SCH ×2 (08:58→10:07)
== END | disposition home or self-care (01) ==
LOC: PROCWHC3 08:44
PROVIDERS: ATTEND Surgery Plastic and Reconstructive Surgery
DX: E86.0 Dehydration (principal)
CPT/HCPCS: 96360; 96361

== ENCOUNTER → 2021-12-19 | Outpatient (CLI) | payer OTHER ==
[~2021-12-19] MED LIST changes: +ONDANSETRON 4 MG/2 ML VIAL IVP ONE; +ONDANSETRON 8 MG in SODIUM CHLORIDE 0.9% 50 ML IVPB ONE; +SCOPOLAMINE 1 MG/72 HR PATCH TRANSDERM STA; -SODIUM CHLORIDE 0.9% 500 ML 500 ML in EMPTY BAG 1 BAG IV PRN
[2021-12-19 10:27] VITALS: BP 130/82; PULSE 80; RESP 16; TEMP 99.4
[2021-12-19] MEDS: SODIUM CHLORIDE 0.9% 1,000 ML IV SCH ×2 (10:31→11:44)
== END ==
LOC: PROCWHC3 09:55
PROVIDERS: ATTEND Surgery Plastic and Reconstructive Surgery
DX: E86.0 Dehydration (principal)
CPT/HCPCS: 96360; 96361; 96367; J2405

== ENCOUNTER → 2021-12-24 | Outpatient (CLI) | payer OTHER ==
[2021-12-24 15:09] VITALS: BP 135/87; PULSE 109; RESP 16; TEMP 99.2; BMI 44.2
--- NOTE | 2021-12-24 15:28 | P.BASOAP ---
Subjective Progress Note Date: 12/24/21 She is now taking her omeprazole. She is using stool softener for constipation. She was not drinking fluids. Chest pressure has improved. She is not taking tylenol. She has lost 30 pounds in 1 month. She is improving her fluids. HR over 100s. She has required fluids. No shoulder pain of the left. No moderate pain of the left side. She reports gatorade gives her elevated heart rate. Nontoxic in appearance. Objective - Vital Signs Vital signs: Vital Signs Temp 99.2 F 12/24/21 15:06 Pulse 109 H 12/24/21 15:06 Resp 16 12/24/21 15:06 BP 135/87 12/24/21 15:06 Pulse Ox FiO2 Intake & Output 12/23/21 12/24/21 12/24/21 18:59 06:59 18:59 Weight 118.841 kg Assessment/Plan Plan: Date: 12/24/21 Initial Weight: 118.841 kg Initial BMI: 44.2 Current Weight: 118.841 kg Current BMI: 44.2 Type of Surgery: Vertical Sleeve Gastrectomy Total Volume in Band: Previous Volume: Volume Removed: Volume Added: Band Size:
== END ==
LOC: BARWHC3 14:28
PROVIDERS: ATTEND Surgery Plastic and Reconstructive Surgery
DX: Z98.84 Bariatric surgery status (principal); E66.01 Morbid (severe) obesity due to excess calories; Z68.41 Body mass index [BMI] 40.0-44.9, adult
CPT/HCPCS: 97802; G0463; 99211

== ENCOUNTER → 2022-01-15 | Outpatient (CLI) | payer OTHER ==
[2022-01-15 16:03] LABS: INR 0.9 (<1.2); Prothrombin Time 10.3 sec (9.0-12.0)
[2022-01-15 16:57] LABS: Partial Thromboplastin Time 20.1 sec (22.0-30.0)
[2022-01-15 22:31] LABS: HCT 34.6 % (37.2-46.3); MCH 24.6 pg (27.0-32.0); MCHC 28.9 g/dL (32.0-37.0); Mean Platelet Volume 10.9 fL (9.5-12.2); NRBC Per 100 WBC 0 /100 WBCS (0.0-0.0); Platelet Count 348 X 10*3/uL (140-440); RBC 4.07 X 10*6/uL (4.10-5.20); RDW 15.2 % (11.5-14.5); WBC 6.04 X 10*3/uL (4.50-10.00)
[2022-01-15 23:35] LABS: LDL Cholesterol,Calculated 73.8 mg/dL (0.0-131.0); Prealbumin 12.6 mg/dL (18.0-42.0)
[2022-01-16 01:00] LABS: % Iron Saturation 11.18 (12.00-45.00); ALT 23 U/L (8-44); AST 29 U/L (13-35); African American GFR (CKD) 137.2 (60.0-200.0); Albumin 3.8 g/dL (3.8-4.9); Albumin/Globulin Ratio 1.34 (1.60-3.17); Alkaline Phosphatase 88 U/L (41-126); BUN/Creat Ratio 7.99 Ratio (12.00-20.00); Calcium 9.5 mg/dL (8.7-10.3); Carbon Dioxide 22.2 mmol/L (20.0-27.5); Chloride 104 mmol/L (96-109); Globulin 2.8 g/dL (1.6-3.3); Glucose 90 mg/dL (70-110); Iron 34 ug/dL (50-170); Magnesium 2.1 mg/dL (1.5-2.4); Non-African American GFR(CKD) 118.4 (60.0-200.0); Phosphorus 2.5 mg/dL (2.4-5.1); Potassium 4.3 mmol/L (3.5-5.5); Sodium 140 mmol/L (135-145); Total Iron Binding Capacity 300 ug/dL (228-460); Total Protein 6.7 g/dL (6.2-8.2)
[2022-01-16 13:47] LABS: Zinc, Serum 86 ug/dL (60-130)
== END | disposition home or self-care (01) ==
LOC: LABWHC1 13:58
PROVIDERS: ATTEND Surgery Plastic and Reconstructive Surgery
DX: E66.01 Morbid (severe) obesity due to excess calories (principal); E89.1 Postprocedural hypoinsulinemia; D50.8 Other iron deficiency anemias; K91.2 Postsurgical malabsorption, not elsewhere classified; E44.0 Moderate protein-calorie malnutrition; E55.9 Vitamin D deficiency, unspecified; K74.1 Hepatic sclerosis; N19 Unspecified kidney failure; T56.894A Toxic effect of other metals, undetermined, initial encounter; K50.90 Crohn's disease, unspecified, without complications
CPT/HCPCS: 36415; 80053; 80061; 82306; 82525; 82607; 82728; 82746; 83036; 83540; 83550; 83735; 83970; 84100; 84134; 84255; 84425; 84443; 84590; 84630; 85027; 85610; 85730

== ENCOUNTER → 2022-04-08 | Outpatient (CLI) | payer OTHER ==
[2022-04-08 14:07] VITALS: BP 121/79; PULSE 73; RESP 12; TEMP 98.6; BMI 40.4
--- NOTE | 2022-04-08 14:51 | P.BASOAP ---
Subjective Progress Note Date: 04/08/22 She has lost 60 pounds in 1 year. She has lost 20 pounds in 3 months. She feels well. Start food diary journal. No dysphagia. She reports constipation and troubles with bowel habits. She has change in bowel habits. Recommend colonoscopy for change in bowel habits. Recommend bariatric labs. She is not doing a MVI everyday. No abdominal pain. No heart burn. Recommend 40 pounds weight loss. Needs 85 grams protein daily. Fluids of 80 oz daily. She is working and kids keep her busy. She is 45 minutes of activities in total. Objective - Vital Signs Vital signs: Vital Signs Temp 98.6 F 04/08/22 13:57 Pulse 73 04/08/22 13:57 Resp 12 04/08/22 13:57 BP 121/79 04/08/22 13:57 Pulse Ox FiO2 Intake & Output 04/07/22 04/08/22 04/08/22 18:59 06:59 18:59 Weight 108.409 kg Assessment/Plan Plan: Date: 04/08/22 Initial Weight: 118.841 kg Initial BMI: 44.2 Current Weight: 108.409 kg Current BMI: 40.4 Type of Surgery: Total Volume in Band: Previous Volume: Volume Removed: Volume Added: Band Size:
[2022-04-08 16:16] LABS: INR 0.9 (<1.2); Partial Thromboplastin Time 28.2 sec (22.0-30.0); Prothrombin Time 10.1 sec (9.0-12.0)
[2022-04-08 23:16] LABS: Chol/HDL Ratio 2.53 Ratio; LDL Cholesterol,Calculated 64.9 mg/dL (0.0-131.0)
[2022-04-08 23:27] LABS: HCT 37.9 % (37.2-46.3); HGB 11.4 g/dL (12.0-15.0); MCH 25.3 pg (27.0-32.0); MCHC 30.1 g/dL (32.0-37.0); MCV 84.2 fL (80.0-97.0); NRBC Per 100 WBC 0 /100 WBCS (0.0-0.0); Platelet Count 324 X 10*3/uL (140-440); RDW 15.9 % (11.5-14.5); WBC 5.89 X 10*3/uL (4.50-10.00)
[2022-04-08 23:29] LABS: % Iron Saturation 10.73 (12.00-45.00); ALT 11 U/L (8-44); AST 14 U/L (13-35); African American GFR (CKD) 139.7 (60.0-200.0); Albumin 4.3 g/dL (3.8-4.9); Albumin/Globulin Ratio 1.51 (1.60-3.17); Alkaline Phosphatase 82 U/L (41-126); BUN/Creat Ratio 11.26 Ratio (12.00-20.00); Blood Urea Nitrogen 6.6 mg/dL (9.0-27.0); Calcium 9.7 mg/dL (8.7-10.3); Carbon Dioxide 24.2 mmol/L (20.0-27.5); Chloride 101 mmol/L (96-109); Globulin 2.8 g/dL (1.6-3.3); Glucose 90 mg/dL (70-110); Iron 35 ug/dL (50-170); Non-African American GFR(CKD) 120.6 (60.0-200.0); Potassium 4.4 mmol/L (3.5-5.5); Sodium 139 mmol/L (135-145); Total Iron Binding Capacity 329 ug/dL (228-460); Total Protein 7.1 g/dL (6.2-8.2)
[2022-04-08 23:30] LABS: Phosphorus 3.4 mg/dL (2.4-5.1)
[2022-04-10 07:23] LABS: Vitamin A 32 ug/dL (38-106)
== END ==
LOC: BARWHC3 13:12
PROVIDERS: ATTEND Surgery Plastic and Reconstructive Surgery
DX: E66.01 Morbid (severe) obesity due to excess calories (principal); Z68.41 Body mass index [BMI] 40.0-44.9, adult; E89.1 Postprocedural hypoinsulinemia; D50.8 Other iron deficiency anemias; D50.9 Iron deficiency anemia, unspecified; K91.2 Postsurgical malabsorption, not elsewhere classified; E44.0 Moderate protein-calorie malnutrition; E44.1 Mild protein-calorie malnutrition; E45 Retarded development following protein-calorie malnutrition; E46 Unspecified protein-calorie malnutrition; E55.9 Vitamin D deficiency, unspecified; K74.1 Hepatic sclerosis; N19 Unspecified kidney failure; T56.894A Toxic effect of other metals, undetermined, initial encounter
CPT/HCPCS: 84425; 80061; 80053; 82607; 82728; 82746; 83540; 83550; 83735; 84100; 84443; 84590; 85027; 85610; 85730; 82306; 83970; 97803; G0463; 99211

== ENCOUNTER → 2022-06-24 | Outpatient (CLI) | payer OTHER ==
[2022-06-24 14:37] VITALS: BP 104/73; PULSE 80; TEMP 97.8; BMI 39.6
--- NOTE | 2022-06-24 14:50 | P.BASOAP ---
Subjective Progress Note Date: 06/24/22 She had lost her parents both this year in 6 months. She is not eating. She pulled a muscle of the right leg and 5 miles on the back. She felt she pulled a muscle. Her mother had uterine cancer. Her bother is her support and in the . Has EGD and colon. Recommend labs. Objective - Vital Signs Vital signs: Vital Signs Temp 97.8 F 06/24/22 14:34 Pulse 80 06/24/22 14:34 Resp BP 104/73 06/24/22 14:34 Pulse Ox FiO2 Intake & Output 06/23/22 06/24/22 06/24/22 18:59 06:59 18:59 Weight 106.594 kg Assessment/Plan Plan: Date: 06/24/22 Initial Weight: 118.841 kg Initial BMI: 44.2 Current Weight: 106.594 kg Current BMI: 39.6 Type of Surgery: Total Volume in Band: Previous Volume: Volume Removed: Volume Added: Band Size:
[2022-06-24 16:00] LABS: Partial Thromboplastin Time 27.7 sec (22.0-30.0); Prothrombin Time 10.5 sec (9.0-12.0)
[2022-06-24 20:34] LABS: HCT 37.8 % (37.2-46.3); HGB 11.5 g/dL (12.0-15.0); MCHC 30.4 g/dL (32.0-37.0); MCV 85.5 fL (80.0-97.0); Mean Platelet Volume 11.5 fL (9.5-12.2); NRBC Per 100 WBC 0 /100 WBCS (0.0-0.0); Platelet Count 260 X 10*3/uL (140-440); RBC 4.42 X 10*6/uL (4.10-5.20); RDW 14.2 % (11.5-14.5); WBC 5.09 X 10*3/uL (4.50-10.00)
[2022-06-24 23:06] LABS: % Iron Saturation 16.89 (12.00-45.00); ALT 9 U/L (8-44); AST 14 U/L (13-35); African American GFR (CKD) 138.4 (60.0-200.0); Albumin 4.2 g/dL (3.8-4.9); Albumin/Globulin Ratio 1.55 (1.60-3.17); Alkaline Phosphatase 84 U/L (41-126); BUN/Creat Ratio 11.25 Ratio (12.00-20.00); Blood Urea Nitrogen 6.8 mg/dL (9.0-27.0); Calcium 9.6 mg/dL (8.7-10.3); Carbon Dioxide 24.7 mmol/L (20.0-27.5); Chloride 103 mmol/L (96-109); Globulin 2.7 g/dL (1.6-3.3); Glucose 85 mg/dL (70-110); Iron 53 ug/dL (50-170); Non-African American GFR(CKD) 119.4 (60.0-200.0); Phosphorus 3.4 mg/dL (2.4-5.1); Potassium 4.1 mmol/L (3.5-5.5); Sodium 139 mmol/L (135-145); Total Iron Binding Capacity 315 ug/dL (228-460); Total Protein 6.9 g/dL (6.2-8.2)
[2022-06-25 01:27] LABS: Chol/HDL Ratio 2.36 Ratio; LDL Cholesterol,Calculated 65.3 mg/dL (0.0-131.0); Prealbumin 14.4 mg/dL (18.0-42.0); VLDL Calculation 14.88 mg/dL (5.00-40.00)
[2022-06-25 14:00] LABS: Zinc, Serum 48 ug/dL (60-130)
[2022-06-26 06:24] LABS: Vitamin A 27 ug/dL (38-106)
== END ==
LOC: BARWHC3 13:23
PROVIDERS: ATTEND Surgery Plastic and Reconstructive Surgery
DX: E66.01 Morbid (severe) obesity due to excess calories (principal); E89.1 Postprocedural hypoinsulinemia; D50.8 Other iron deficiency anemias; D50.9 Iron deficiency anemia, unspecified; E44.0 Moderate protein-calorie malnutrition; E44.1 Mild protein-calorie malnutrition; E45 Retarded development following protein-calorie malnutrition; E46 Unspecified protein-calorie malnutrition; K74.1 Hepatic sclerosis; N19 Unspecified kidney failure; T56.894A Toxic effect of other metals, undetermined, initial encounter; Z3A.39 39 weeks gestation of pregnancy
CPT/HCPCS: 84255; 84134; 84425; 80061; 80053; 82607; 82728; 82525; 82746; 83540; 83550; 83735; 84100; 84443; 84590; 84630; 85027; 85610; 85730; 82306; 83970; 83036; 97803; G0463; 99211

== ENCOUNTER → 2022-08-20 | Outpatient (CLI) | payer OTHER ==
--- NOTE | 2022-08-20 10:52 | USB ---
Reason for Exam: Clinical finding. Technique: Method: Targeted. Findings: The area of palpable concern of the right breast, the axilla of the right breast and the retroareolar of the right breast were scanned. No solid or cystic masses are identified. Clinical management is. Overall Assessment: Negative, BI-RAD 1 Management: Screening Mammogram of both breasts at age 38. A clinical breast exam by your physician is recommended on an annual basis and results should be correlated with mammographic findings. This exam should not preclude additional follow-up of suspicious palpable abnormalities. Results were given to the patient verbally at the time of exam. Electronically signed and approved by: Celestino Sorto M.D. Radiologis
== END | disposition home or self-care (01) ==
LOC: RADUSWWP 10:11
PROVIDERS: ATTEND Family Medicine
DX: N63.10 Unspecified lump in the right breast, unspecified quadrant (principal)

== ENCOUNTER 2023-01-09 10:08 | Emergency (ER) | payer OTHER ==
--- NOTE | 2023-01-09 11:08 | ED ---
SOB HPI - General Chief Complaint: Shortness of Breath Stated Complaint: fatigue Time Seen by Provider: 01/09/23 10:25 Source: patient, RN notes reviewed Mode of arrival: ambulatory Limitations: no limitations - History of Present Illness Initial Comments: 32-year-old female presents emergency Department chief complaint of feeling fatigued, shortness of breath. Patient states that it has been on and off for last few days. Patient states she feels it more with some exertion she denies any chest pain. Patient states that she does have a history of anemia states has chronic issue and which she has seen hematology 4. She denies any chills she has mild nasal congestion. No abdominal pain she did complain of right calf pain a few days ago. - Related Data Home Medications Medication Instructions Recorded Confirmed Multivitamin [Multivitamins Adult 1 each PO DAILY 01/22/22 06/24/22 Gummies] Ergocalciferol [Vitamin D2 (1250 50,000 unit PO FR 04/15/22 06/24/22 Mcg = 32863 Iu)] Calcium Carbonate/Vitamin D3 2 tab PO DAILY 05/06/22 06/24/22 [Calcium 500 mg Chewable Tablet] Ferrous Sulfate [Iron] 1 tab PO DAILY 05/11/22 06/24/22 Vitamin A Palmitate [Vitamin A-25 1 capsule PO DAILY 05/11/22 06/24/22 (25,000 Units = 7500 MCG)] Previous Rx's Medication Instructions Recorded bisacodyL [Dulcolax] 5 mg PO DAILY PRN #10 tab 12/16/21 Allergies Allergy/AdvReac Type Severity Reaction Status Date / Time No Known Allergies Allergy Verified 01/09/23 10:13 Review of Systems ROS Statement: Those systems with pertinent positive or pertinent negative responses have been documented in the HPI. ROS Other: All systems not noted in ROS Statement are negative. Past Medical History Past Medical History: No Reported History Additional Past Medical History / Comment(s): anemia History of Any Multi-Drug Resistant Organisms: None Reported Past Surgical History: Bariatric Surgery, Section, Tubal Ligation Additional Past Surgical History / Comment(s): D&C , gastric sleeve 12/15/21, COLONOSCOPY, Past Anesthesia/Blood Transfusion Reactions: No Reported Reaction Past Psychological History: No Psychological Hx Reported Smoking Status: Never smoker Past Alcohol Use History: None Reported Past Drug Use History: None Reported - Past Family History Father History Unknown: Yes Mother Family Medical History: Cancer Additional Family Medical History / Comment(s): UTERINE CANCER, General Exam Limitations: no limitations General appearance: alert, in no apparent distress Head exam: Present: atraumatic, normocephalic, normal inspection Eye exam: Present: normal appearance, PERRL, EOMI. Absent: scleral icterus, conjunctival injection, periorbital swelling ENT exam: Present: normal exam, normal oropharynx, mucous membranes moist Neck exam: Present: normal inspection, full ROM. Absent: tenderness, mening ismus, lymphadenopathy Respiratory exam: Present: normal lung sounds bilaterally. Absent: respiratory distress, wheezes, rales, rhonchi, stridor Cardiovascular Exam: Present: regular rate, normal rhythm, normal heart sounds. Absent: systolic murmur, diastolic murmur, rubs, gallop, clicks Neurological exam: Present: alert Skin exam: Present: warm, dry, intact, normal color. Absent: rash Course Vital Signs 01/09/23 01/09/23 10:10 13:18 Temperature 98.1 F 98.4 F Pulse Rate 89 70 Respiratory 20 18 Rate Blood Pressure 99/63 101/67 O2 Sat by Pulse 100 98 Oximetry Medical Decision Making - Medical Decision Making Was pt. sent in by a medical professional or institution (, PA, PLATE KEEPER, urgent care, hospital, or intermediate...) When possible be specific @ -No Did you speak to anyone other than the patient for history (EMS, parent, family, police, friend...)? What history was obtained from this source @ -No Did you review nursing and triage notes (agree or disagree)? Why? @ -I reviewed and agree with nursing and triage notes Were old charts reviewed (outside hosp., previous admission, EMS record, old EKG, old radiological studies, urgent care reports/EKG's, intermediate records)? Report findings @ -No old charts were reviewed Differential Diagnosis (chest pain, altered mental status, abdominal pain women, abdominal pain men, vaginal bleeding, weakness, fever, dyspnea, syncope, headache, dizziness, GI bleed, back pain, seizure, CVA, palpatations, mental health, musculoskeletal)? @ -[Differential Dyspnea: Coronary syndrome, arrhythmia, tamponade, asthma, COPD, pulmonary embolism, pneumonia, pneumothorax, pulmonary effusion, anaphylaxis, diabetic ketoacidosis, flailed chest, pulmonary contusion, diaphragmatic rupture, anemia, neuromuscular, this is not meant to be an all-inclusive list. EKG interpreted by me (3pts min.). @ -As above X-rays interpreted by me (1pt min.). @ -Chest x-ray shows no acute cardio Department process. CT interpreted by me (1pt min.). @ -None done U/S interpreted by me (1pt. min.). @ -None done What testing was considered but not performed or refused? (CT, X-rays, U/S, labs)? Why? @ -None What meds were considered but not given or refused? Why? @ -None Did you discuss the management of the patient with other professionals (professionals i.e. , PA, PLATE KEEPER, lab, RT, psych nurse, health care social worker, motors and controls tester, teacher, landcare officer, case preparer and liner)? Give summary @ -No Was smoking cessation discussed for >3mins.? @ -No Was critical care preformed (if so, how long)? @ -No Were there social determinants of health that impacted care today? How? (Homelessness, low income, unemployed, alcoholism, drug addiction, transportation, low edu. Level, literacy, decrease access to med. care, group home, rehab)? @ -No Was there de-escalation of care discussed even if they declined (Discuss DNR or withdrawal of care, Hospice)? DNR status @ -No What co-morbidities impacted this encounter? (DM, HTN, Smoking, COPD, CAD, Cancer, CVA, ARF, Chemo, Hep., AIDS, mental health diagnosis, sleep apnea, morbid obesity)? @ -Anemia Was patient admitted / discharged? Hospital course, mention meds given and route, prescriptions, significant lab abnormalities, going to OR and other pertinent info. @ -[Discharge versus, x-ray, EKG unremarkable patient has a negative d-dimer, negative troponin. Patient has no hypoxia with ambulation. Patient is discharged in stable condition return parameters were discussed. We discussed possibility of viral upper respiratory infection. Undiagnosed new problem with uncertain prognosis? @ -No Drug Therapy requiring intensive monitoring for toxicity (Heparin, Nitro, Insulin, Cardizem)? @ -No Were any procedures done? @ -No Diagnosis/symptom? @ -Dyspnea, viral illness Acute, or Chronic, or Acute on Chronic? @ -Acute Uncomplicated (without systemic symptoms) or Complicated (systemic symptoms)? @ -Uncomplicated Side effects of treatment? @ -No Exacerbation, Progression, or Severe Exacerbation? @ -No Poses a threat to life or bodily function? How? (Chest pain, USA, SD, pneumonia, PE, COPD, DKA, ARF, appy, cholecystitis, CVA, Diverticulitis, Homicidal, Suicidal, threat to staff... and all critical care pts) @ -No - Lab Data Result diagrams: 01/09/23 11:17 01/09/23 11:17 Lab Results 01/09/23 01/09/23 01/09/23 Range/Units 11:17 11:17 11:17 WBC 4.4 (3.8-10.6) k/uL RBC 4.58 (3.80-5.40) m/uL Hgb 12.4 (11.4-16.0) gm/dL Hct 39.4 (34.0-46.0) % MCV 86.0 (80.0-100.0) fL MCH 27.2 (25.0-35.0) pg MCHC 31.6 (31.0-37.0) g/dL RDW 13.0 (11.5-15.5) % Plt Count 299 (150-450) k/uL MPV 7.3 Neutrophils % 57 % Lymphocytes % 34 % Monocytes % 4 % Eosinophils % 3 % Basophils % 0 % Neutrophils # 2.5 (1.3-7.7) k/uL Lymphocytes # 1.5 (1.0-4.8) k/uL Monocytes # 0.2 (0-1.0) k/uL Eosinophils # 0.1 (0-0.7) k/uL Basophils # 0.0 (0-0.2) k/uL Hypochromasia Slight PT 10.1 (10.0-12.5) sec INR 0.9 (<1.2) APTT 27.1 (22.0-30.0) sec D-Dimer 0.36 (<0.60) mg/L FEU Sodium 139 (137-145) mmol/L Potassium 4.3 (3.5-5.1) mmol/L Chloride 103 (98-107) mmol/L Carbon Dioxide 26 (22-30) mmol/L Anion Gap 10 mmol/L BUN 9 (7-17) mg/dL Creatinine 0.56 (0.52-1.04) mg/dL Est GFR (CKD-EPI)AfAm >90 (>60 ml/min/1.73 sqM) Est GFR (CKD-EPI)NonAf >90 (>60 ml/min/1.73 sqM) Glucose 91 (74-99) mg/dL Calcium 9.5 (8.4-10.2) mg/dL Magnesium 2.1 (1.6-2.3) mg/dL Total Bilirubin 0.4 (0.2-1.3) mg/dL AST 22 (14-36) U/L ALT 14 (4-34) U/L Alkaline Phosphatase 81 (38-126) U/L Troponin I (0.000-0.034) ng/mL NT-Pro-B Natriuret Pep <20 pg/mL Total Protein 7.6 (6.3-8.2) g/dL Albumin 4.2 (3.5-5.0) g/dL Influenza Type A (PCR) (Not Detectd) Influenza Type B (PCR) (Not Detectd) RSV (PCR) (Not Detectd) SARS-CoV-2 (PCR) (Not Detectd) 01/09/23 01/09/23 Range/Units 11:17 11:17 WBC (3.8-10.6) k/uL RBC (3.80-5.40) m/uL Hgb (11.4-16.0) gm/dL Hct (34.0-46.0) % MCV (80.0-100.0) fL MCH (25.0-35.0) pg MCHC (31.0-37.0) g/dL RDW (11.5-15.5) % Plt Count (150-450) k/uL MPV Neutrophils % % Lymphocytes % % Monocytes % % Eosinophils % % Basophils % % Neutrophils # (1.3-7.7) k/uL Lymphocytes # (1.0-4.8) k/uL Monocytes # (0-1.0) k/uL Eosinophils # (0-0.7) k/uL Basophils # (0-0.2) k/uL Hypochromasia PT (10.0-12.5) sec INR (<1.2) APTT (22.0-30.0) sec D-Dimer (<0.60) mg/L FEU Sodium (137-145) mmol/L Potassium (3.5-5.1) mmol/L Chloride (98-107) mmol/L Carbon Dioxide (22-30) mmol/L Anion Gap mmol/L BUN (7-17) mg/dL Creatinine (0.52-1.04) mg/dL Est GFR (CKD-EPI)AfAm (>60 ml/min/1.73 sqM) Est GFR (CKD-EPI)NonAf (>60 ml/min/1.73 sqM) Glucose (74-99) mg/dL Calcium (8.4-10.2) mg/dL Magnesium (1.6-2.3) mg/dL Total Bilirubin (0.2-1.3) mg/dL AST (14-36) U/L ALT (4-34) U/L Alkaline Phosphatase (38-126) U/L Troponin I <0.012 (0.000-0.034) ng/mL NT-Pro-B Natriuret Pep pg/mL Total Protein (6.3-8.2) g/dL Albumin (3.5-5.0) g/dL Influenza Type A (PCR) Not Detected (Not Detectd) Influenza Type B (PCR) Not Detected (Not Detectd) RSV (PCR) Not Detected (Not Detectd) SARS-CoV-2 (PCR) Not Detected (Not Detectd) - EKG Data -: EKG Interpreted by Me EKG Comments: EKG performed at 11:07 sinus rhythm rate of 73 [place] 155 QRS 86 QT/QTC 363/393 Disposition Clinical Impression: Viral illness, Dyspnea Disposition: HOME SELF-CARE Condition: Stable Instructions (If sedation given, give patient instructions): Dyspnea (ED) Additional Instructions: Please return to the Emergency Department if symptoms worsen or any other concerns. Is patient prescribed a controlled substance at d/c from ED?: No Referrals: Jordin Lester MD [Primary Care Provider] - 1-2 days Time of Disposition: 12:48
--- NOTE | 2023-01-09 11:38 | XR ---
EXAMINATION TYPE: XR chest 2V DATE OF EXAM: 01/09/2023 11:24 AM CLINICAL INDICATION:Female, 32 years old with history of difficulty breathing; [facility] COMPARISON: Chest radiographs from 07/18/2021 TECHNIQUE: XR chest 2V Frontal and lateral views of the chest. FINDINGS: Lungs/Pleura: There is no evidence of pleural effusion, focal consolidation, or pneumothorax. Pulmonary vascularity: Unremarkable. Heart/mediastinum: Cardiomediastinal silhouette is unremarkable. Musculoskeletal: No acute osseous pathology. IMPRESSION: No acute cardiopulmonary disease/process.
[2023-01-09 11:56] LABS: Basophils % (A) 0 %; Eosinophils # (A) 0.1 k/uL (0-0.7); Eosinophils % (A) 3 %; HCT 39.4 % (34.0-46.0); HGB 12.4 gm/dL (11.4-16.0); Hypochromasia Slight; Lymphocytes # (A) 1.5 k/uL (1.0-4.8); Lymphocytes % (A) 34 %; MCH 27.2 pg (25.0-35.0); MCHC 31.6 g/dL (31.0-37.0); Mean Platelet Volume 7.3; Monocytes # (A) 0.2 k/uL (0-1.0); Monocytes % (A) 4 %; Neutrophils # (A) 2.5 k/uL (1.3-7.7); Neutrophils % (A) 57 %; Platelet Count 299 k/uL (150-450); RBC 4.58 m/uL (3.80-5.40); WBC 4.4 k/uL (3.8-10.6)
[2023-01-09 12:09] LABS: INR 0.9 (<1.2); Partial Thromboplastin Time 27.1 sec (22.0-30.0); Prothrombin Time 10.1 sec (10.0-12.5)
[2023-01-09 12:13] LABS: ALT 14 U/L (4-34); AST 22 U/L (14-36); African American GFR (CKD) >90 (>60 ml/min/1.73 sqM); Albumin 4.2 g/dL (3.5-5.0); Alkaline Phosphatase 81 U/L (38-126); Anion Gap 10 mmol/L; Blood Urea Nitrogen 9 mg/dL (7-17); Calcium 9.5 mg/dL (8.4-10.2); Carbon Dioxide 26 mmol/L (22-30); Chloride 103 mmol/L (98-107); Glucose 91 mg/dL (74-99); Magnesium 2.1 mg/dL (1.6-2.3); Non-African American GFR(CKD) >90 (>60 ml/min/1.73 sqM); Potassium 4.3 mmol/L (3.5-5.1); Sodium 139 mmol/L (137-145); Total Bilirubin 0.4 mg/dL (0.2-1.3); Total Protein 7.6 g/dL (6.3-8.2)
[2023-01-09 12:21] LABS: NT-Pro-B-Type Natriuretic Pept <20 pg/mL
[2023-01-09 13:21] VITALS: BP 101/67; PULSE 70; RESP 18; TEMP 98.4
== END 2023-01-09 13:40 | disposition home or self-care (01) ==
LOC: EC 10:08
DX: B34.9 Viral infection, unspecified (principal); R06.00 Dyspnea, unspecified; Z20.822 Contact with and (suspected) exposure to COVID-19
CPT/HCPCS: 36415; 71046; 80053; 83735; 83880; 84484; 85025; 85379; 85610; 85730; 87636; 93005; 99285

== ENCOUNTER → 2024-08-15 | Outpatient (CLI) | payer OTHER ==
--- NOTE | 2024-08-15 10:38 | MM ---
Reason for Exam: Clinical finding. Patient History: Menarche at age 10. First Full-Term at age 16. Premenopausal. Risk Values: Lucinda 5 year model risk: 0.3%. NCI Lifetime model risk: 9.8%. Prior Study Comparison: 08/20/2022 Right US breast limited RT, [facility]. Tissue Density: There are scattered areas of fibroglandular density. Findings: Analyzed By CAD. There is 17 mm circumscribed round mass in the posterior depth upper outer quadrant right breast. Overall Assessment: Incomplete: need additional imaging evaluation, BI-RAD 0 Management: Diagnostic Breast Ultrasound of the right breast. Targeted ultrasound right breast. Results were given to the patient verbally at the time of exam. Patient should continue monthly self-breast exams. A clinical breast exam by your physician is recommended on an annual basis. This exam should not preclude additional follow-up of suspicious palpable abnormalities. Note on Lucinda scores and lifetime risk: 1. A Lucinda score greater than 3% is considered moderate risk. If this is the case, consider specialist referral to assess eligibility for a risk reducing agent. 2. If overall lifetime risk for the development of breast cancer is 20% or higher, the patient may qualify for future screening with alternating mammogram and breast MRI. [facility], , 08/15/2024 10:34 AM. Electronically signed and approved by: Tim Cortes M.D.
--- NOTE | 2024-08-15 11:04 | USB ---
Reason for Exam: Additional evaluation requested from prior study. Patient History: Menarche at age 10. First Full-Term at age 16. Premenopausal. Risk Values: Lucinda 5 year model risk: 0.3%. NCI Lifetime model risk: 9.8%. Technique: Method: Targeted. Findings: The lateral section of the breast of the right breast, the axilla of the right breast and the retroareolar of the right breast were scanned. Targeted ultrasound. At 10:00 position 15 cm distance from nipple there is a 1.3 x 1.2 x 1.6 cm heterogeneous hypoechoic solid round circumscribed mass corresponding to mammogram abnormality. Overall Assessment: Probably benign, BI-RAD 3 Management: Diagnostic Breast Ultrasound of the right breast in 6 months. Manage patient's symptoms clinically. 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 Surgical consultation should be considered for possible management options. A clinical breast exam by your physician is recommended on an annual basis and results should be correlated with mammographic findings. This exam should not preclude additional follow-up of suspicious palpable abnormalities. Results were given to the patient verbally at the time of exam. [facility], , 08/15/2024 11:01 AM. Electronically signed and approved by: Tim Cortes M.D.
== END | disposition home or self-care (01) ==
LOC: RADMAMWWP 10:10
PROVIDERS: ATTEND Family Medicine
DX: N64.4 Mastodynia (principal); N64.59 Other signs and symptoms in breast
CPT/HCPCS: 77066; 76642; G0279; 77062